=== PATIENT | female | born 1990 | race Hispanic/Latino ===

== ENCOUNTER 2017-06-20 12:19 | Emergency (ER) | payer MEDICAID ==
[~2017-06-20 12:19] MED LIST: ESOM40CA PO; NAPR-1023 PO
[2017-06-20 13:19] LABS: HEMATOCRIT 42.3 % (36-48); RED BLOOD CELL COUNT(AUTO) 4.99 MIL/uL (4.00-5.50); WHITE BLOOD COUNT (AUTO) 6.6 K/uL (4.8-10.8)
[2017-06-20 13:20] LABS: BASOPHILS % (AUTO) 1.6 % (0.0-5.0); EOSINOPHILS % (AUTO) 0.6 % (0.0-8.0); LYMPHOCYTES % (AUTO) 21.8 % (21.0-51.0); MEAN CORPUSCULAR HEMOGLOBIN 27.5 pg (27.0-33.0); MEAN CORPUSCULAR HGB CONC 32.4 g/dL (32.0-36.0); MEAN CORPUSCULAR VOLUME 84.9 fL (79-99); PLATELET COUNT (AUTO) 259 K/uL (130-400); RED CELL DISTRIBUTION WIDTH 13.4 % (11.0-15.5)
[2017-06-20 13:37] LABS: CREATININE 0.7 mg/dL (0.5-1.5); POTASSIUM 4.1 mmol/L (3.5-5.1)
[2017-06-20 13:43] LABS: ALBUMIN 3.4 g/dL (3.5-5.0); BILIRUBIN,TOTAL 0.4 mg/dL (0.2-1.0); TOTAL PROTEIN, SERUM 7.8 g/dL (6.0-8.3)
[2017-06-20] MEDS ORDERED: FAMOTIDINE/PF 20 MG/2 ML VIAL IV ONE (13:46)
[2017-06-20] MEDS ORDERED: METHYLPREDNISOLONE SOD SUCC 125MG/2ML VIAL ONE (13:46)
[2017-06-20] MEDS ORDERED: DiphenhydrAMINE HCL 50 MG/ML VIAL ONE (13:46)
[2017-06-20] MEDS ORDERED: SODIUM CHLORIDE 0.9% 1000ML 1,000 ML IV ONE (13:46)
== END 2017-06-20 15:35 | disposition home or self-care (01) ==
LOC: EDH 12:19
DX: T78.49XA Other allergy, initial encounter (principal); L50.9 Urticaria, unspecified; Z91.041 Radiographic dye allergy status; X58.XXXA Exposure to other specified factors, initial encounter
CPT/HCPCS: 36415; 80053; 85025; 96361; 96374; 96375; 99284; J1200; J2930; J3490; J7030

== ENCOUNTER 2019-03-17 01:05 | Emergency (ER) | payer MEDICAID ==
[2019-03-17 01:43] LABS: BASOPHILS % (AUTO) 0.4 % (0.0-5.0); EOSINOPHILS % (AUTO) 3.4 % (0.0-8.0); HEMATOCRIT 39.4 % (36-48); LYMPHOCYTES % (AUTO) 36.2 % (21.0-51.0); MEAN CORPUSCULAR HEMOGLOBIN 27.7 pg (27.0-33.0); MEAN CORPUSCULAR HGB CONC 32.6 g/dL (32.0-36.0); MEAN CORPUSCULAR VOLUME 85.1 fL (79-99); MONOCYTES % (AUTO) 8.7 % (3.0-13.0); NEUTROPHILS % (AUTO) 51.3 % (40.0-77.0); NUCLEATED RED BLOOD CELLS 0.1 % (0.0-0.19); PLATELET COUNT (AUTO) 240 K/uL (130-400); RED BLOOD CELL COUNT(AUTO) 4.63 MIL/uL (4.00-5.50); RED CELL DISTRIBUTION WIDTH 13.1 % (11.0-15.5); WHITE BLOOD COUNT (AUTO) 5.1 K/uL (4.8-10.8)
[2019-03-17 01:48] LABS: BILIRUBIN,URINE Negative (NEGATIVE); COLOR,URINE Yellow (YELLOW); GLUCOSE, URINE (UA) Negative (NEGATIVE); KETONES,URINE Negative (NEGATIVE); LEUKOCYTE ESTERASE ,URINE Negative (NEGATIVE); NITRATE,URINE Negative (NEGATIVE); OCCULT BLOOD,URINE Negative (NEGATIVE); PROTEIN,URINE Negative (NEGATIVE); UROBILINOGEN,URINE 0.2 mg/dL (0.2-1.0)
[2019-03-17 01:49] LABS: APPEARANCE,URINE CLEAR (CLEAR)
[2019-03-17] MEDS ORDERED: DiphenhydrAMINE HCL 50 MG/ML VIAL ONE (01:53)
[2019-03-17] MEDS ORDERED: KETOROLAC TROMETHAMINE 30MG/ML ONE (01:53)
[2019-03-17] MEDS ORDERED: PROCHLORPERAZINE EDISYLATE 10 MG/2 ML VIAL ONE (01:53)
[2019-03-17 01:55] LABS: AMPHET/METH SCREEN,URINE NEGATIVE (NEGATIVE); BARBITURATE SCREEN, URINE NEGATIVE (NEGATIVE); BENZODIAZEPINES SCREEN,URINE NEGATIVE (NEGATIVE); CANNABINOID SCREEN,URINE NEGATIVE (NEGATIVE); COCAINE SCREEN,URINE NEGATIVE (NEGATIVE); OPIATE SCREEN,URINE NEGATIVE (NEGATIVE); PHENCYCLIDINE SCREEN,URINE NEGATIVE (NEGATIVE)
[2019-03-17 01:55] LABS: CREATININE 0.8 mg/dL (0.5-1.5); POTASSIUM 3.8 mmol/L (3.5-5.1)
[2019-03-17 01:58] LABS: INR 0.94 (0.85-1.15); PARTIAL THROMBOPLASTIN TIME 27.2 SEC (26.3-35.5); PROTHROMBIN TIME 9.9 SEC (9.6-11.6)
[2019-03-17 02:00] LABS: ALBUMIN 3.5 g/dL (3.5-5.0); BILIRUBIN,TOTAL 0.1 mg/dL (0.2-1.0); TOTAL PROTEIN, SERUM 7.9 g/dL (6.0-8.3)
== END 2019-03-17 03:16 | disposition home or self-care (01) ==
LOC: EDH 01:05
DX: R51 Headache (principal); R03.0 Elevated blood-pressure reading, without diagnosis of hypertension; F41.9 Anxiety disorder, unspecified; Z90.710 Acquired absence of both cervix and uterus; Z90.49 Acquired absence of other specified parts of digestive tract; Z91.041 Radiographic dye allergy status
CPT/HCPCS: 36415; 80053; 80305; 81003; 82550; 84484; 85025; 85610; 85730; 93005; 96374; 96375; 99285; J0780; J1200; J1885

== ENCOUNTER 2021-08-02 18:33 | Emergency (ER) | payer MEDICAID ==
[~2021-08-02] VITALS: Ht 160 cm; Wt 87.1 kg
[2021-08-02 18:47] VITALS: BP 148/91
[2021-08-02] MEDS ORDERED: KETOROLAC 30MG VIAL (30MG/ML) ONE (18:51)
[2021-08-02] MEDS ORDERED: SULFAMETHOX-TMP DS 800/160 TAB ONE (18:51)
[2021-08-02] MEDS ORDERED: NAPR-1023 PO (18:58)
[2021-08-02] MEDS ORDERED: SULF1TAB42 PO (18:58)
[2021-08-02] MEDS ORDERED: SULFAMETHOX-TMP DS 800/160 TAB PO SCH (19:00)
[2021-08-02] MEDS ORDERED: KETOROLAC 30MG VIAL (30MG/ML) IM ONE (19:00)
== END 2021-08-02 19:10 | disposition home or self-care (01) ==
LOC: EDH 18:33
DX: L02.415 Cutaneous abscess of right lower limb (principal); J45.909 Unspecified asthma, uncomplicated; E11.9 Type 2 diabetes mellitus without complications; E78.00 Pure hypercholesterolemia, unspecified; I10 Essential (primary) hypertension; Z88.8 Allergy status to other drugs, medicaments and biological substances; Z79.899 Other long term (current) drug therapy; Z79.84 Long term (current) use of oral hypoglycemic drugs; Z90.49 Acquired absence of other specified parts of digestive tract; Z98.890 Other specified postprocedural states
CPT/HCPCS: 96372; 99283; J1885

== ENCOUNTER 2021-11-25 12:04 | Emergency (ER) | payer MEDICAID ==
[~2021-11-25 12:04] MED LIST changes: +SULF1TAB42 PO
[2021-11-25 12:29] LABS: BASOPHILS % (AUTO) 0.2 % (0.0-5.0); EOSINOPHILS % (AUTO) 0.8 % (0.0-8.0); HEMATOCRIT 38.5 % (36-48); LYMPHOCYTES % (AUTO) 16.1 % (21.0-51.0); MEAN CORPUSCULAR HEMOGLOBIN 27.3 pg (27.0-33.0); MEAN CORPUSCULAR HGB CONC 32.5 g/dL (32.0-36.0); MEAN CORPUSCULAR VOLUME 84.1 fL (79-99); NEUTROPHILS % (AUTO) 76.4 % (40.0-77.0); PLATELET COUNT (AUTO) 230 K/uL (130-400); RED BLOOD CELL COUNT(AUTO) 4.58 MIL/uL (4.00-5.50); RED CELL DISTRIBUTION WIDTH 12.7 % (11.0-15.5); WHITE BLOOD COUNT (AUTO) 6.2 K/uL (4.8-10.8)
[2021-11-25 12:30] LABS: APPEARANCE,URINE CLEAR (CLEAR); BILIRUBIN,URINE NEGATIVE (NEGATIVE); COLOR,URINE YELLOW (YELLOW); GLUCOSE, URINE (UA) NEGATIVE (NEGATIVE); KETONES,URINE NEGATIVE (NEGATIVE); LEUKOCYTE ESTERASE ,URINE NEGATIVE (NEGATIVE); NITRATE,URINE NEGATIVE (NEGATIVE); OCCULT BLOOD,URINE NEGATIVE (NEGATIVE); PROTEIN,URINE NEGATIVE (NEGATIVE); UROBILINOGEN,URINE 0.2 mg/dL (0.2-1.0)
[2021-11-25 12:34] LABS: HCG,QUAL RESULT NEGATIVE (NEGATIVE)
[2021-11-25 12:38] LABS: CREATININE 0.8 mg/dL (0.5-1.5); POTASSIUM 3.8 mmol/L (3.5-5.1)
[2021-11-25 12:42] LABS: ALBUMIN 3.4 g/dL (3.5-5.0); TOTAL PROTEIN, SERUM 7.7 g/dL (6.0-8.3)
[2021-11-25] MEDS ORDERED: ONDANSETRON 4MG INJ IVP ONE (13:00)
[2021-11-25] MEDS ORDERED: MORPHINE 2 MG SYG IVP ONE (13:00)
[2021-11-25] MEDS ORDERED: 0.9%NACL 1000ML 1,000 ML IV SCH (13:00)
[2021-11-25] MEDS ORDERED: ONDA4TAB10 PO (13:48)
[2021-11-25] MEDS ORDERED: KETO10 PO (13:48)
[2021-11-25] MEDS ORDERED: TAMS-1 PO (13:48)
[2021-11-25 13:54] VITALS: BP 125/76
[2021-11-25] MEDS ORDERED: TAMSULOSIN HCL 0.4 MG CAP.ER.24H PO SCH (14:50)
== END 2021-11-25 14:05 | disposition home or self-care (01) ==
LOC: EDH 12:04
DX: N20.0 Calculus of kidney (principal); E11.9 Type 2 diabetes mellitus without complications; E86.0 Dehydration; Z88.8 Allergy status to other drugs, medicaments and biological substances; Z88.0 Allergy status to penicillin; Z88.1 Allergy status to other antibiotic agents; Z79.899 Other long term (current) drug therapy
CPT/HCPCS: 99284; 74176; 96374; 96361; 96375; 80053; 83690; 85025; 86140; 81003; 81025; 36415; J7030; J2405

== ENCOUNTER 2022-02-05 23:37 | Emergency (ER) | payer MEDICAID ==
[~2022-02-05] VITALS: Ht 160 cm; Wt 87.1 kg
[~2022-02-05 23:37] MED LIST changes: +KETO10 PO; +ONDA4TAB10 PO; +TAMS-1 PO
[2022-02-06] MEDS ORDERED: INSULIN HUMULIN R 100 UNIT/ML 3ML SQ ONE (01:00)
[2022-02-06] MEDS ORDERED: 0.9%NACL 1000ML 1,000 ML IV ONE (01:00)
[2022-02-06 01:10] LABS: BASOPHILS % (AUTO) 0.1 % (0.0-5.0); HEMATOCRIT 36.5 % (36-48); MEAN CORPUSCULAR HGB CONC 33.4 g/dL (32.0-36.0); MEAN CORPUSCULAR VOLUME 83.9 fL (79-99); MONOCYTES % (AUTO) 6.2 % (3.0-13.0); NEUTROPHILS % (AUTO) 62.4 % (40.0-77.0); PLATELET COUNT (AUTO) 237 K/uL (130-400); RED BLOOD CELL COUNT(AUTO) 4.35 MIL/uL (4.00-5.50); RED CELL DISTRIBUTION WIDTH 12.6 % (11.0-15.5); WHITE BLOOD COUNT (AUTO) 7.2 K/uL (4.8-10.8)
[2022-02-06 01:24] LABS: APPEARANCE,URINE CLEAR (CLEAR); BILIRUBIN,URINE NEGATIVE (NEGATIVE); COLOR,URINE LIGHT-YELLOW (YELLOW); GLUCOSE, URINE (UA) NEGATIVE (NEGATIVE); KETONES,URINE NEGATIVE (NEGATIVE); LEUKOCYTE ESTERASE ,URINE NEGATIVE Leu/uL (NEGATIVE); NITRATE,URINE NEGATIVE (NEGATIVE); OCCULT BLOOD,URINE NEGATIVE (NEGATIVE); PH,URINE 5.5 (5.0-8.0); PROTEIN,URINE NEGATIVE (NEGATIVE); UROBILINOGEN,URINE 0.2 mg/dL (0.2-1.0)
[2022-02-06 01:28] LABS: CREATININE 0.8 mg/dL (0.5-1.5); POTASSIUM 3.8 mmol/L (3.5-5.1)
[2022-02-06 01:35] LABS: HCG,QUALITATIVE URINE NEGATIVE (NEGATIVE)
[2022-02-06] MEDS ORDERED: CYCLOBENZAPRINE HCL 10 MG TABLET PO ONE (02:00)
[2022-02-06] MEDS ORDERED: TIZA4CAP8 PO (03:24)
[2022-02-06 03:28] VITALS: BP 121/67
== END 2022-02-06 03:35 | disposition home or self-care (01) ==
LOC: EDH 23:41
DX: E11.65 Type 2 diabetes mellitus with hyperglycemia (principal); M62.838 Other muscle spasm; E66.9 Obesity, unspecified; Z88.1 Allergy status to other antibiotic agents; Z88.0 Allergy status to penicillin; Z88.8 Allergy status to other drugs, medicaments and biological substances; Z87.19 Personal history of other diseases of the digestive system; Z79.1 Long term (current) use of non-steroidal anti-inflammatories (NSAID); Z68.34 Body mass index [BMI] 34.0-34.9, adult
CPT/HCPCS: 99284; 80048; 85025; 82948 ×2; 81003; 81025; 36415; 96360; 96361; 72040; 96372; J1815; J7030

== ENCOUNTER 2022-05-21 21:15 | Emergency (ER) | payer MEDICAID ==
[~2022-05-21] VITALS: Ht 160 cm; Wt 86.2 kg
[~2022-05-21 21:15] MED LIST changes: +TIZA4CAP8 PO
[2022-05-21 22:24] LABS: BASOPHILS % (AUTO) 0.2 % (0.0-5.0); EOSINOPHILS % (AUTO) 1.5 % (0.0-8.0); HEMATOCRIT 37.7 % (36-48); LYMPHOCYTES % (AUTO) 34.4 % (21.0-51.0); MEAN CORPUSCULAR HEMOGLOBIN 27.7 pg (27.0-33.0); MEAN CORPUSCULAR HGB CONC 32.4 g/dL (32.0-36.0); MEAN CORPUSCULAR VOLUME 85.5 fL (79-99); MONOCYTES % (AUTO) 7.7 % (3.0-13.0); NEUTROPHILS % (AUTO) 55.9 % (40.0-77.0); PLATELET COUNT (AUTO) 246 K/uL (130-400); RED BLOOD CELL COUNT(AUTO) 4.41 MIL/uL (4.00-5.50); RED CELL DISTRIBUTION WIDTH 12.4 % (11.0-15.5); WHITE BLOOD COUNT (AUTO) 6.5 K/uL (4.8-10.8)
[2022-05-21 22:35] LABS: CREATININE 0.9 mg/dL (0.5-1.5); POTASSIUM 3.7 mmol/L (3.5-5.1)
[2022-05-21 22:37] LABS: HCG,QUALITATIVE URINE NEGATIVE (NEGATIVE)
[2022-05-21 22:40] LABS: ALBUMIN 3.3 g/dL (3.5-5.0); TOTAL PROTEIN, SERUM 7.6 g/dL (6.0-8.3)
[2022-05-21 22:46] LABS: APPEARANCE,URINE CLEAR (CLEAR); BILIRUBIN,URINE NEGATIVE (NEGATIVE); COLOR,URINE LIGHT-YELLOW (YELLOW); GLUCOSE, URINE (UA) >=1000 mg/dL (NEGATIVE); KETONES,URINE NEGATIVE (NEGATIVE); LEUKOCYTE ESTERASE ,URINE NEGATIVE Leu/uL (NEGATIVE); NITRATE,URINE NEGATIVE (NEGATIVE); OCCULT BLOOD,URINE NEGATIVE (NEGATIVE); PH,URINE 5.5 (5.0-8.0); PROTEIN,URINE NEGATIVE (NEGATIVE); UROBILINOGEN,URINE 0.2 mg/dL (0.2-1.0)
[2022-05-21 22:47] LABS: AMPHET/METH SCREEN,URINE NEGATIVE (NEGATIVE); BARBITURATE SCREEN, URINE NEGATIVE (NEGATIVE); BENZODIAZEPINES SCREEN,URINE NEGATIVE (NEGATIVE); CANNABINOID SCREEN,URINE NEGATIVE (NEGATIVE); COCAINE SCREEN,URINE NEGATIVE (NEGATIVE); OPIATE SCREEN,URINE NEGATIVE (NEGATIVE); PHENCYCLIDINE SCREEN,URINE NEGATIVE (NEGATIVE)
[2022-05-21 22:48] LABS: BACTERIA,URINE FEW /HPF (None Seen); MUCUS,URINE RARE LPF (None Seen); RBC,URINE 0-1 /HPF (0-1)
[2022-05-21 22:50] LABS: SQUAMOUS EPITHELIAL CELL,UR MOD /HPF (0-2)
[2022-05-21] MEDS ORDERED: INSULIN HUMULIN R 100 UNIT/ML 3ML SQ ONE (23:30)
[2022-05-21] MEDS ORDERED: KETOROLAC 30MG VIAL (30MG/ML) IVP ONE (23:30)
[2022-05-21] MEDS ORDERED: 0.9%NACL 1000ML 1,000 ML IV ONE (23:30)
[2022-05-22 01:00] VITALS: BP 143/81
== END 2022-05-22 01:36 | disposition home or self-care (01) ==
LOC: EDH 21:15
DX: E11.65 Type 2 diabetes mellitus with hyperglycemia (principal); R20.0 Anesthesia of skin; I10 Essential (primary) hypertension; Z86.73 Personal history of transient ischemic attack (TIA), and cerebral infarction without residual deficits; Z90.49 Acquired absence of other specified parts of digestive tract; Z90.710 Acquired absence of both cervix and uterus; Z79.899 Other long term (current) drug therapy; Z88.0 Allergy status to penicillin; Z88.1 Allergy status to other antibiotic agents; Z88.8 Allergy status to other drugs, medicaments and biological substances; Z79.1 Long term (current) use of non-steroidal anti-inflammatories (NSAID)
CPT/HCPCS: 99285; 96374; 70450; 96361; 84484; 80053; 80305; 85025; 82948 ×2; 81001; 81025; 36415; 96372; 93005; J1815; J7030; J1885

== ENCOUNTER 2022-08-15 20:48 | Emergency (ER) | payer MEDICAID ==
[~2022-08-15] VITALS: Ht 160 cm; Wt 86.2 kg
[2022-08-15] MEDS ORDERED: KETOROLAC 30MG VIAL (30MG/ML) IM ONE (22:30)
[2022-08-15] MEDS ORDERED: INSULIN HUMULIN R 100 UNIT/ML 3ML SQ ONE (22:30)
[2022-08-15] MEDS ORDERED: 0.9%NACL 1000ML 1,000 ML IV ONE (23:30)
[2022-08-16 00:09] LABS: APPEARANCE,URINE CLOUDY (CLEAR); BILIRUBIN,URINE NEGATIVE (NEGATIVE); COLOR,URINE YELLOW (YELLOW); GLUCOSE, URINE (UA) >=1000 mg/dL (NEGATIVE); KETONES,URINE 5 mg/dL (NEGATIVE); LEUKOCYTE ESTERASE ,URINE 25 Leu/uL (NEGATIVE); NITRATE,URINE NEGATIVE (NEGATIVE); OCCULT BLOOD,URINE NEGATIVE (NEGATIVE); PH,URINE 5.5 (5.0-8.0); PROTEIN,URINE 20 mg/dL (NEGATIVE)
[2022-08-16 00:17] LABS: CREATININE 0.8 mg/dL (0.5-1.5); POTASSIUM 3.6 mmol/L (3.5-5.1)
[2022-08-16 00:19] LABS: BACTERIA,URINE Few /HPF (None Seen)
[2022-08-16 00:23] LABS: ALBUMIN 3.2 g/dL (3.5-5.0); BASOPHILS % (AUTO) 0.3 % (0.0-5.0); EOSINOPHILS % (AUTO) 1.9 % (0.0-8.0); HEMATOCRIT 37.4 % (36-48); LYMPHOCYTES % (AUTO) 41.3 % (21.0-51.0); MEAN CORPUSCULAR HEMOGLOBIN 27.9 pg (27.0-33.0); MEAN CORPUSCULAR HGB CONC 33.2 g/dL (32.0-36.0); MONOCYTES % (AUTO) 6.3 % (3.0-13.0); PLATELET COUNT (AUTO) 234 K/uL (130-400); RED BLOOD CELL COUNT(AUTO) 4.45 MIL/uL (4.00-5.50); RED CELL DISTRIBUTION WIDTH 12.2 % (11.0-15.5); TOTAL PROTEIN, SERUM 7.3 g/dL (6.0-8.3); WHITE BLOOD COUNT (AUTO) 6.2 K/uL (4.8-10.8)
[2022-08-16 00:37] VITALS: BP 148/82
[2022-08-16] MEDS ORDERED: HYDROCODONE/ACETAMINOPHEN 5/325 MG TAB ONE (01:09)
[2022-08-16] MEDS ORDERED: ONDANSETRON 4MG INJ ONE (01:09)
[2022-08-16] MEDS ORDERED: ONDANSETRON 4MG INJ IVP ONE (01:30)
[2022-08-16] MEDS ORDERED: HYDROCODONE/ACETAMINOPHEN 5/325 MG TAB PO ONE (01:30)
[2022-08-16] MEDS ORDERED: IBUP-2070 PO (02:46)
== END 2022-08-16 02:53 | disposition home or self-care (01) ==
LOC: EDH 20:48
DX: S69.81XA Other specified injuries of right wrist, hand and finger(s), initial encounter (principal); E11.65 Type 2 diabetes mellitus with hyperglycemia; I10 Essential (primary) hypertension; E11.9 Type 2 diabetes mellitus without complications; E66.9 Obesity, unspecified; K21.9 Gastro-esophageal reflux disease without esophagitis; Z90.49 Acquired absence of other specified parts of digestive tract; Z98.890 Other specified postprocedural states; Z79.899 Other long term (current) drug therapy; Z88.0 Allergy status to penicillin; Z88.1 Allergy status to other antibiotic agents; Z88.8 Allergy status to other drugs, medicaments and biological substances; Z91.040 Latex allergy status; W18.39XA Other fall on same level, initial encounter; Y93.89 Activity, other specified; Y92.89 Other specified places as the place of occurrence of the external cause; Y99.8 Other external cause status
CPT/HCPCS: 99284; 80053; 85025; 82948 ×4; 82010; 81001; 36415; 73130; 73110; 96372 ×2; 96374; 96361; J1815 ×2; J1885; J2405

== ENCOUNTER 2022-11-05 23:21 | Emergency (ER) | payer MEDICAID ==
[~2022-11-05] VITALS: Ht 160 cm; Wt 83.5 kg
[~2022-11-05 23:21] MED LIST changes: +IBUP-2070 PO
[2022-11-05 23:58] LABS: BASOPHILS % (AUTO) 0.3 % (0.0-5.0); EOSINOPHILS % (AUTO) 1.9 % (0.0-8.0); HEMATOCRIT 40.2 % (36-48); LYMPHOCYTES % (AUTO) 36.6 % (21.0-51.0); MEAN CORPUSCULAR HEMOGLOBIN 27.1 pg (27.0-33.0); MEAN CORPUSCULAR HGB CONC 33.1 g/dL (32.0-36.0); MONOCYTES % (AUTO) 6.5 % (3.0-13.0); NEUTROPHILS % (AUTO) 54.4 % (40.0-77.0); PLATELET COUNT (AUTO) 231 K/uL (130-400); RED CELL DISTRIBUTION WIDTH 12.5 % (11.0-15.5); WHITE BLOOD COUNT (AUTO) 6.2 K/uL (4.8-10.8)
[2022-11-06] MEDS ORDERED: ONDANSETRON 4MG INJ IVP ONE ×2
[2022-11-06] MEDS ORDERED: 0.9%NACL 1000ML 1,000 ML IV ONE
[2022-11-06] MEDS ORDERED: MORPHINE 4 MG SYG IVP ONE
[2022-11-06 00:08] LABS: APPEARANCE,URINE CLEAR (CLEAR); BILIRUBIN,URINE NEGATIVE (NEGATIVE); COLOR,URINE COLORLESS (YELLOW); GLUCOSE, URINE (UA) >=1000 mg/dL (NEGATIVE); KETONES,URINE NEGATIVE (NEGATIVE); LEUKOCYTE ESTERASE ,URINE NEGATIVE Leu/uL (NEGATIVE); NITRATE,URINE NEGATIVE (NEGATIVE); OCCULT BLOOD,URINE NEGATIVE (NEGATIVE); PROTEIN,URINE NEGATIVE (NEGATIVE); UROBILINOGEN,URINE 0.2 mg/dL (0.2-1.0)
[2022-11-06 00:09] LABS: SQUAMOUS EPITHELIAL CELL,UR RARE /HPF (0-2)
[2022-11-06 00:11] LABS: CREATININE 0.8 mg/dL (0.5-1.5); POTASSIUM 3.9 mmol/L (3.5-5.1)
[2022-11-06 00:17] LABS: ALBUMIN 3.3 g/dL (3.5-5.0); TOTAL PROTEIN, SERUM 7.5 g/dL (6.0-8.3)
[2022-11-06 01:55] VITALS: BP 132/73
[2022-11-06] MEDS ORDERED: IBUP-2088 PO (02:08)
[2022-11-06] MEDS ORDERED: DOCU-116 PO (02:08)
== END 2022-11-06 02:21 | disposition home or self-care (01) ==
LOC: EDH 23:21
DX: R10.9 Unspecified abdominal pain (principal); E11.9 Type 2 diabetes mellitus without complications; I10 Essential (primary) hypertension; Z88.0 Allergy status to penicillin; Z88.1 Allergy status to other antibiotic agents; Z88.8 Allergy status to other drugs, medicaments and biological substances; Z90.49 Acquired absence of other specified parts of digestive tract
CPT/HCPCS: 99285; 96374; 96361; 96375; 80053; 83690; 85025; 83605; 81001; 36415; 74176; J7030; J2405; J2270

== ENCOUNTER 2023-02-26 22:09 | Emergency (ER) | payer MEDICAID ==
[~2023-02-26] VITALS: Ht 160 cm; Wt 76.2 kg
[~2023-02-26 22:09] MED LIST changes: +DOCU-116 PO; +IBUP-2088 PO
[2023-02-26] MEDS ORDERED: SOLU-MEDROL 125MG VIAL IVP ONE (22:30)
[2023-02-26] MEDS ORDERED: FAMOTIDINE 20MG VIAL IV ONE (22:30)
[2023-02-26 22:32] LABS: APPEARANCE,URINE CLEAR (CLEAR); BILIRUBIN,URINE NEGATIVE (NEGATIVE); COLOR,URINE LIGHT-YELLOW (YELLOW); GLUCOSE, URINE (UA) NEGATIVE (NEGATIVE); KETONES,URINE NEGATIVE (NEGATIVE); LEUKOCYTE ESTERASE ,URINE NEGATIVE Leu/uL (NEGATIVE); NITRATE,URINE NEGATIVE (NEGATIVE); OCCULT BLOOD,URINE NEGATIVE (NEGATIVE); PH,URINE 5.5 (5.0-8.0); PROTEIN,URINE 10 mg/dL (NEGATIVE); UROBILINOGEN,URINE 0.2 mg/dL (0.2-1.0)
[2023-02-26 22:36] LABS: ADD UA MICROSCOPIC NO; HCG,QUALITATIVE URINE NEGATIVE (NEGATIVE)
[2023-02-26 22:40] LABS: AMPHET/METH SCREEN,URINE NEGATIVE (NEGATIVE); BARBITURATE SCREEN, URINE NEGATIVE (NEGATIVE); BENZODIAZEPINES SCREEN,URINE NEGATIVE (NEGATIVE); CANNABINOID SCREEN,URINE POSITIVE (NEGATIVE); COCAINE SCREEN,URINE NEGATIVE (NEGATIVE); OPIATE SCREEN,URINE NEGATIVE (NEGATIVE); PHENCYCLIDINE SCREEN,URINE NEGATIVE (NEGATIVE)
[2023-02-26 22:48] LABS: BASOPHILS # (AUTO) 0.01 K/uL (0.00-0.20); BASOPHILS % (AUTO) 0.2 % (0.0-5.0); EOSINOPHILS # (AUTO) 0.04 K/uL (0.00-0.70); EOSINOPHILS % (AUTO) 0.7 % (0.0-8.0); HEMATOCRIT 36.1 % (36-48); IMMATURE GRANULOCYTE ABSOLUTE 0.02 K/uL (0-1); LYMPHOCYTES % (AUTO) 33.5 % (21.0-51.0); MEAN CORPUSCULAR HEMOGLOBIN 27.7 pg (27.0-33.0); MEAN CORPUSCULAR HGB CONC 32.4 g/dL (32.0-36.0); MEAN CORPUSCULAR VOLUME 85.3 fL (79-99); MONOCYTES # (AUTO) 0.4 K/uL (0.1-1.0); NEUTROPHILS # (AUTO) 3.5 K/uL (1.8-7.7); NEUTROPHILS % (AUTO) 58.3 % (40.0-77.0); PLATELET COUNT (AUTO) 267 K/uL (130-400); RED BLOOD CELL COUNT(AUTO) 4.23 MIL/uL (4.00-5.50); RED CELL DISTRIBUTION WIDTH 12.7 % (11.0-15.5)
[2023-02-26 22:54] LABS: CREATININE 0.7 mg/dL (0.5-1.5); POTASSIUM 4.7 mmol/L (3.5-5.1)
[2023-02-26 23:00] LABS: ALBUMIN 3.3 g/dL (3.5-5.0); BILIRUBIN,TOTAL 0.4 mg/dL (0.2-1.0); TOTAL PROTEIN, SERUM 8.3 g/dL (6.0-8.3)
[2023-02-26] MEDS ORDERED: METH4TAB3 PO (23:40)
[2023-02-26] MEDS ORDERED: FAMO-136 PO (23:41)
[2023-02-27 00:02] VITALS: BP 123/74; PULSE 80; RESP 16; O2SAT 98
== END 2023-02-27 00:03 | disposition home or self-care (01) ==
LOC: EDH 22:09
DX: S29.011A Strain of muscle and tendon of front wall of thorax, initial encounter (principal); E11.9 Type 2 diabetes mellitus without complications; J45.909 Unspecified asthma, uncomplicated; Z88.0 Allergy status to penicillin; Z88.1 Allergy status to other antibiotic agents; Z88.8 Allergy status to other drugs, medicaments and biological substances; Z90.710 Acquired absence of both cervix and uterus; Z90.49 Acquired absence of other specified parts of digestive tract; X58.XXXA Exposure to other specified factors, initial encounter; Y93.89 Activity, other specified; Y92.89 Other specified places as the place of occurrence of the external cause; Y99.8 Other external cause status
CPT/HCPCS: 99285; 96374; 71045; 96375; 84484; 80053; 80305; 85025; 81025; 36415; 93005; 81003; J2930; S0028; J3490

== ENCOUNTER 2023-03-20 06:26 | Emergency (ER) | payer MEDICAID ==
[~2023-03-20] VITALS: Ht 160 cm; Wt 74.8 kg
[~2023-03-20 06:26] MED LIST changes: +FAMO-136 PO; +METH4TAB3 PO
[2023-03-20 06:51] LABS: BASOPHILS # (AUTO) 0.01 K/uL (0.00-0.20); BASOPHILS % (AUTO) 0.2 % (0.0-5.0); EOSINOPHILS # (AUTO) 0.12 K/uL (0.00-0.70); EOSINOPHILS % (AUTO) 2.1 % (0.0-8.0); HEMATOCRIT 37.4 % (36-48); IMMATURE GRANULOCYTE ABSOLUTE 0.03 K/uL (0-1); LYMPHOCYTES # (AUTO) 1.2 K/uL (1.0-4.8); LYMPHOCYTES % (AUTO) 20.3 % (21.0-51.0); MEAN CORPUSCULAR HEMOGLOBIN 27.8 pg (27.0-33.0); MEAN CORPUSCULAR HGB CONC 32.4 g/dL (32.0-36.0); MEAN CORPUSCULAR VOLUME 85.8 fL (79-99); MONOCYTES # (AUTO) 0.4 K/uL (0.1-1.0); MONOCYTES % (AUTO) 6.4 % (3.0-13.0); NEUTROPHILS # (AUTO) 4.1 K/uL (1.8-7.7); NEUTROPHILS % (AUTO) 70.5 % (40.0-77.0); PLATELET COUNT (AUTO) 255 K/uL (130-400); RED BLOOD CELL COUNT(AUTO) 4.36 MIL/uL (4.00-5.50); RED CELL DISTRIBUTION WIDTH 12.9 % (11.0-15.5); WHITE BLOOD COUNT (AUTO) 5.8 K/uL (4.8-10.8)
[2023-03-20] MEDS ORDERED: LACTATED RINGERS 1000ML 1,000 ML IV ONE (07:00)
[2023-03-20] MEDS ORDERED: FAMOTIDINE 20MG VIAL IV ONE ×2 (07:43→08:00)
[2023-03-20] MEDS ORDERED: METOCLOPRAMIDE 10 MG/2 ML VIAL ONE (07:43)
[2023-03-20] MEDS ORDERED: ONDANSETRON 4MG INJ ONE (07:43)
[2023-03-20] MEDS ORDERED: ONDANSETRON 4MG INJ IVP ONE (08:00)
[2023-03-20] MEDS ORDERED: METOCLOPRAMIDE 10 MG/2 ML VIAL IVP ONE (08:00)
[2023-03-20 08:16] LABS: ALBUMIN 3.2 g/dL (3.5-5.0); BILIRUBIN,TOTAL 0.2 mg/dL (0.2-1.0); CREATININE 0.8 mg/dL (0.5-1.5); POTASSIUM 4.1 mmol/L (3.5-5.1); TOTAL PROTEIN, SERUM 7.6 g/dL (6.0-8.3)
[2023-03-20] MEDS ORDERED: KETOROLAC 15MG/ML VIAL (15MG/ML) ONE (08:39)
[2023-03-20] MEDS ORDERED: KETOROLAC 30MG VIAL (30MG/ML) IM ONE (09:00)
[2023-03-20] MEDS ORDERED: KETOROLAC 15MG/ML VIAL (15MG/ML) IV ONE (09:00)
[2023-03-20 09:53] LABS: ADD UA MICROSCOPIC NO; APPEARANCE,URINE CLEAR (CLEAR); BILIRUBIN,URINE NEGATIVE (NEGATIVE); COLOR,URINE COLORLESS (YELLOW); GLUCOSE, URINE (UA) NEGATIVE (NEGATIVE); KETONES,URINE NEGATIVE (NEGATIVE); LEUKOCYTE ESTERASE ,URINE NEGATIVE Leu/uL (NEGATIVE); NITRATE,URINE NEGATIVE (NEGATIVE); OCCULT BLOOD,URINE NEGATIVE (NEGATIVE); PH,URINE 5.5 (5.0-8.0); PROTEIN,URINE NEGATIVE (NEGATIVE); UROBILINOGEN,URINE 0.2 mg/dL (0.2-1.0)
[2023-03-20 10:05] LABS: HCG,QUALITATIVE URINE NEGATIVE (NEGATIVE)
[2023-03-20] MEDS ORDERED: ONDA4TAB10 PO (10:31)
[2023-03-20] MEDS ORDERED: METO10TA41 PO (10:31)
[2023-03-20] MEDS ORDERED: ALBUHFA IH (10:31)
[2023-03-20] MEDS ORDERED: FAMO-136 PO (10:31)
[2023-03-20 10:39] VITALS: BP 109/71; PULSE 77; RESP 17; O2SAT 100
== END 2023-03-20 10:41 | disposition home or self-care (01) ==
LOC: EDH 06:26
DX: R10.10 Upper abdominal pain, unspecified (principal); R11.2 Nausea with vomiting, unspecified; E86.0 Dehydration; E11.43 Type 2 diabetes mellitus with diabetic autonomic (poly)neuropathy; J45.909 Unspecified asthma, uncomplicated; K31.84 Gastroparesis; Z88.0 Allergy status to penicillin; Z88.1 Allergy status to other antibiotic agents; Z88.8 Allergy status to other drugs, medicaments and biological substances; Z90.49 Acquired absence of other specified parts of digestive tract; Z98.51 Tubal ligation status
CPT/HCPCS: 99284; 96374; 96361; 96375; 80053; 83690; 85025; 81003; 81025; 36415; 96372; J2405; J1885 ×2; J2765; S0028; J3490

== ENCOUNTER 2023-04-01 10:47 | Emergency (ER) | payer MEDICAID ==
[~2023-04-01] VITALS: Ht 160 cm; Wt 75.7 kg
[~2023-04-01 10:47] MED LIST changes: +ALBUHFA IH; +METO10TA41 PO
[2023-04-01 13:08] LABS: BASOPHILS # (AUTO) 0.02 K/uL (0.00-0.20); BASOPHILS % (AUTO) 0.4 % (0.0-5.0); EOSINOPHILS # (AUTO) 0.07 K/uL (0.00-0.70); EOSINOPHILS % (AUTO) 1.3 % (0.0-8.0); HEMATOCRIT 35.9 % (36-48); IMMATURE GRANULOCYTE ABSOLUTE 0.02 K/uL (0-1); LYMPHOCYTES # (AUTO) 1.8 K/uL (1.0-4.8); LYMPHOCYTES % (AUTO) 32.4 % (21.0-51.0); MEAN CORPUSCULAR HGB CONC 32.6 g/dL (32.0-36.0); MEAN CORPUSCULAR VOLUME 85.9 fL (79-99); MONOCYTES # (AUTO) 0.5 K/uL (0.1-1.0); MONOCYTES % (AUTO) 8.3 % (3.0-13.0); NEUTROPHILS # (AUTO) 3.2 K/uL (1.8-7.7); NEUTROPHILS % (AUTO) 57.2 % (40.0-77.0); PLATELET COUNT (AUTO) 276 K/uL (130-400); RED BLOOD CELL COUNT(AUTO) 4.18 MIL/uL (4.00-5.50); RED CELL DISTRIBUTION WIDTH 13.1 % (11.0-15.5); WHITE BLOOD COUNT (AUTO) 5.6 K/uL (4.8-10.8)
[2023-04-01 13:09] LABS: CREATININE 0.6 mg/dL (0.5-1.5); POTASSIUM 3.6 mmol/L (3.5-5.1)
[2023-04-01 13:14] LABS: ALBUMIN 3.1 g/dL (3.5-5.0); BILIRUBIN,TOTAL 0.2 mg/dL (0.2-1.0); TOTAL PROTEIN, SERUM 7.3 g/dL (6.0-8.3)
[2023-04-01 14:43] VITALS: BP 132/78; PULSE 97; RESP 16; O2SAT 100
[2023-04-01] MEDS ORDERED: SUMA1TAB7 PO (14:54)
[2023-04-01] MEDS ORDERED: PROCHLORPERAZINE 10MG/2ML INJ IV ONE (15:00)
[2023-04-01] MEDS ORDERED: DiphenhydrAMINE HCL 50 MG/ML VIAL IV ONE (15:00)
[2023-04-01 15:06] LABS: AMPHET/METH SCREEN,URINE NEGATIVE (NEGATIVE); BARBITURATE SCREEN, URINE NEGATIVE (NEGATIVE); BENZODIAZEPINES SCREEN,URINE NEGATIVE (NEGATIVE); CANNABINOID SCREEN,URINE NEGATIVE (NEGATIVE); COCAINE SCREEN,URINE NEGATIVE (NEGATIVE); OPIATE SCREEN,URINE NEGATIVE (NEGATIVE); PHENCYCLIDINE SCREEN,URINE NEGATIVE (NEGATIVE)
== END 2023-04-01 15:35 | disposition home or self-care (01) ==
LOC: EDH 10:47
DX: G43.909 Migraine, unspecified, not intractable, without status migrainosus (principal); E11.9 Type 2 diabetes mellitus without complications; K21.9 Gastro-esophageal reflux disease without esophagitis; K31.84 Gastroparesis; Z86.73 Personal history of transient ischemic attack (TIA), and cerebral infarction without residual deficits; Z88.0 Allergy status to penicillin; Z88.1 Allergy status to other antibiotic agents; Z88.8 Allergy status to other drugs, medicaments and biological substances; Z90.49 Acquired absence of other specified parts of digestive tract; Z91.041 Radiographic dye allergy status
CPT/HCPCS: 99285; 96374; 70450; 96375; 80053; 80305; 85025; 36415; J1200; J0780

== ENCOUNTER 2023-11-15 14:14 | Emergency (ER) | payer MEDICAID ==
[~2023-11-15] VITALS: Ht 160 cm; Wt 85.3 kg
[~2023-11-15 14:14] MED LIST changes: +ONDA-243 PO; -ONDA4TAB10 PO; +SUMA1TAB7 PO
[2023-11-15] MEDS: IBUPROFEN 800 MG TAB PO ONE (15:20)
[2023-11-15 15:21] VITALS: BP 140/76; PULSE 87; RESP 17; O2SAT 96
[2023-11-15] MEDS ORDERED: BUTA-271 PO (15:21)
== END 2023-11-15 15:39 | disposition home or self-care (01) ==
LOC: EDH 14:14 → EEVIPCON 14:14 → EDH 15:39
DX: G44.209 Tension-type headache, unspecified, not intractable (principal); E11.9 Type 2 diabetes mellitus without complications; K21.9 Gastro-esophageal reflux disease without esophagitis; Z79.899 Other long term (current) drug therapy; Z98.890 Other specified postprocedural states; Z90.49 Acquired absence of other specified parts of digestive tract; Z90.710 Acquired absence of both cervix and uterus; Z88.0 Allergy status to penicillin; Z88.1 Allergy status to other antibiotic agents; Z88.8 Allergy status to other drugs, medicaments and biological substances
CPT/HCPCS: 70450; 93005

== ENCOUNTER 2024-01-17 21:00 | Emergency (ER) | payer MEDICAID ==
[~2024-01-17] VITALS: Ht 160 cm; Wt 86.2 kg
[~2024-01-17 21:00] MED LIST changes: +BUTA-271 PO
[2024-01-17 21:03] VITALS: BP 166/76; PULSE 108; RESP 20; TEMP 99.2
[2024-01-17] MEDS: LIDOCAINE HCL 1% 20 ML VIAL INJ SCH (21:21)
[2024-01-17] MEDS: CLINDAMYCIN 150 MG CAP PO ONE (21:21)
[2024-01-17] MEDS: HYDROcodone/APAP 5/325 1 TAB TABLET PO ONE (21:21)
[2024-01-17] MEDS: NEOMY SULF/BACITRA/POLYMYXIN B 1 EACH PACKET TP ONE (21:21)
[2024-01-17] MEDS: teTANUS/diphthERIA TOXOID [ADULT] 0.5 ML VIAL IM ONE (21:22)
[2024-01-17] MEDS ORDERED: ACET-2079 PO (22:00)
[2024-01-17] MEDS ORDERED: CEPH500B PO (22:00)
[2024-01-17] MEDS: cePHALexin 500 MG CAPSULE PO ONE (22:03)
== END 2024-01-17 22:15 | disposition home or self-care (01) ==
LOC: EDH 21:00
DX: S81.812A Laceration without foreign body, left lower leg, initial encounter (principal); E11.9 Type 2 diabetes mellitus without complications; Z79.899 Other long term (current) drug therapy; Z90.49 Acquired absence of other specified parts of digestive tract; Z90.710 Acquired absence of both cervix and uterus; Z98.890 Other specified postprocedural states; Z88.0 Allergy status to penicillin; Z88.5 Allergy status to narcotic agent; Z88.8 Allergy status to other drugs, medicaments and biological substances; W25.XXXA Contact with sharp glass, initial encounter; Y93.89 Activity, other specified; Y92.89 Other specified places as the place of occurrence of the external cause; Y99.8 Other external cause status
CPT/HCPCS: 12002; 90471; 90714

== ENCOUNTER 2024-01-25 22:10 | Emergency (ER) | payer MEDICAID ==
[~2024-01-25] VITALS: Ht 160 cm; Wt 83.9 kg
[~2024-01-25 22:10] MED LIST changes: +ACET-2079 PO; +CEPH500B PO
[2024-01-25 23:30] VITALS: BP 124/62; PULSE 74; RESP 20; TEMP 98.1; O2SAT 98
== END 2024-01-25 23:38 | disposition home or self-care (01) ==
LOC: EDH 22:10
DX: S81.812A Laceration without foreign body, left lower leg, initial encounter (principal); E11.9 Type 2 diabetes mellitus without complications; E66.9 Obesity, unspecified; K21.9 Gastro-esophageal reflux disease without esophagitis; K31.84 Gastroparesis; Z79.899 Other long term (current) drug therapy; Z88.0 Allergy status to penicillin; Z88.1 Allergy status to other antibiotic agents; Z88.8 Allergy status to other drugs, medicaments and biological substances; Z90.49 Acquired absence of other specified parts of digestive tract; Z90.710 Acquired absence of both cervix and uterus; Z91.041 Radiographic dye allergy status; Z98.890 Other specified postprocedural states; X58.XXXA Exposure to other specified factors, initial encounter; Y93.89 Activity, other specified; Y92.89 Other specified places as the place of occurrence of the external cause; Y99.8 Other external cause status
CPT/HCPCS: 12001; 99282

== ENCOUNTER 2024-02-08 08:34 | Emergency (ER) | payer MEDICAID ==
[~2024-02-08] VITALS: Ht 160 cm; Wt 86.2 kg
[2024-02-08 09:41] LABS: RAPID GROUP A STREP negative (NEGATIVE)
[2024-02-08 09:48] LABS: APPEARANCE,URINE CLEAR (CLEAR); BILIRUBIN,URINE NEGATIVE (NEGATIVE); COLOR,URINE YELLOW (YELLOW); GLUCOSE, URINE (UA) NEGATIVE (NEGATIVE); KETONES,URINE NEGATIVE (NEGATIVE); LEUKOCYTE ESTERASE ,URINE NEGATIVE Leu/uL (NEGATIVE); NITRATE,URINE NEGATIVE (NEGATIVE); OCCULT BLOOD,URINE NEGATIVE (NEGATIVE); PROTEIN,URINE NEGATIVE (NEGATIVE); UROBILINOGEN,URINE 0.2 mg/dL (0.2-1.0)
[2024-02-08 09:50] LABS: ADD UA MICROSCOPIC NO
[2024-02-08 09:51] LABS: COVID19 (SARS ANTIGEN RAPID) PRESUMPTIVE NEGATIVE (NEGATIVE); INFLUENZA TYPE A Negative For Type A (NEGATIVE); INFLUENZA TYPE B Negative For Type B (NEGATIVE)
[2024-02-08 10:04] LABS: BASOPHILS # (AUTO) 0.02 K/uL (0.00-0.20); BASOPHILS % (AUTO) 0.4 % (0.0-5.0); EOSINOPHILS # (AUTO) 0.04 K/uL (0.00-0.70); EOSINOPHILS % (AUTO) 0.8 % (0.0-8.0); HEMATOCRIT 40.7 % (36-48); IMMATURE GRANULOCYTE ABSOLUTE 0.02 K/uL (0-1); LYMPHOCYTES # (AUTO) 1.1 K/uL (1.0-4.8); LYMPHOCYTES % (AUTO) 21.8 % (21.0-51.0); MEAN CORPUSCULAR HEMOGLOBIN 27.7 pg (27.0-33.0); MEAN CORPUSCULAR HGB CONC 31.9 g/dL (32.0-36.0); MEAN CORPUSCULAR VOLUME 86.8 fL (79-99); MONOCYTES # (AUTO) 0.4 K/uL (0.1-1.0); NEUTROPHILS # (AUTO) 3.5 K/uL (1.8-7.7); NEUTROPHILS % (AUTO) 69.6 % (40.0-77.0); PLATELET COUNT (AUTO) 242 K/uL (130-400); RED BLOOD CELL COUNT(AUTO) 4.69 MIL/uL (4.00-5.50); RED CELL DISTRIBUTION WIDTH 12.2 % (11.0-15.5)
[2024-02-08 10:11] LABS: CREATININE 0.8 mg/dL (0.5-1.0)
[2024-02-08] MEDS: 0.9%NACL 1000ML 1,000 ML IV ONE (11:12)
[2024-02-08] MEDS: ketOROlac 30MG VIAL (30MG/ML) IVP ONE (11:12)
[2024-02-08] MEDS ORDERED: DOCU-116 PO (13:01)
[2024-02-08] MEDS ORDERED: KETO10TA2 PO (13:09)
[2024-02-08 13:21] VITALS: BP 122/80; PULSE 97; RESP 20; TEMP 98.1; O2SAT 99
== END 2024-02-08 13:23 | disposition home or self-care (01) ==
LOC: EDH 08:34
DX: B34.9 Viral infection, unspecified (principal); K59.00 Constipation, unspecified; E11.43 Type 2 diabetes mellitus with diabetic autonomic (poly)neuropathy; K31.84 Gastroparesis; Z20.822 Contact with and (suspected) exposure to COVID-19; Z79.1 Long term (current) use of non-steroidal anti-inflammatories (NSAID); Z79.899 Other long term (current) drug therapy; Z87.442 Personal history of urinary calculi; Z88.0 Allergy status to penicillin; Z88.1 Allergy status to other antibiotic agents; Z88.8 Allergy status to other drugs, medicaments and biological substances; Z91.041 Radiographic dye allergy status; Z98.51 Tubal ligation status
CPT/HCPCS: 99285; 74176; 96374; 96361; 87426; 80048; 85025; 87880; 87804 ×2; 81003; 81025; 36415; J7030; J1885

== ENCOUNTER 2024-06-11 09:04 | Emergency (ER) | payer MEDICAID ==
[~2024-06-11] VITALS: Ht 160 cm; Wt 85.7 kg
[~2024-06-11 09:04] MED LIST changes: +KETO10TA2 PO
--- NOTE | 2024-06-11 09:33 | EKG ---
[facility] Test Date: 2024-06-11 Test Time: 09:29:43 Pat Name: HERMELINDA ANTHONY Department: ED Room: Gender: F [employer] Vendor: [id number] : 1990 Requested By: YOU SARMIENTO Order Number: [id number] Reading MD: Thor Pineda Measurements Intervals [place] Rate: 76 P: 56 LA: 135 QRS: 28 QRSD: 77 T: 35 QT: 374 QTc: 420 Interpretive Statements Sinus rhythm Compared to ECG 11/15/2023 14:50:23 No significant changes Electronically Signed On 06-13-2024 19:57:58 [employer] by Thor Pineda Please click the below link to view image of tracing.
[2024-06-11 09:57] LABS: BASOPHILS # (AUTO) 0.01 K/uL (0.00-0.20); BASOPHILS % (AUTO) 0.3 % (0.0-5.0); EOSINOPHILS # (AUTO) 0.03 K/uL (0.00-0.70); EOSINOPHILS % (AUTO) 0.8 % (0.0-8.0); HEMATOCRIT 36.2 % (36-48); IMMATURE GRANULOCYTE ABSOLUTE 0.01 K/uL (0-1); LYMPHOCYTES # (AUTO) 1.5 K/uL (1.0-4.8); LYMPHOCYTES % (AUTO) 37.6 % (21.0-51.0); MEAN CORPUSCULAR HEMOGLOBIN 27.5 pg (27.0-33.0); MEAN CORPUSCULAR HGB CONC 32.6 g/dL (32.0-36.0); MEAN CORPUSCULAR VOLUME 84.4 fL (79-99); MONOCYTES # (AUTO) 0.3 K/uL (0.1-1.0); MONOCYTES % (AUTO) 7.6 % (3.0-13.0); NEUTROPHILS # (AUTO) 2.1 K/uL (1.8-7.7); NEUTROPHILS % (AUTO) 53.4 % (40.0-77.0); PLATELET COUNT (AUTO) 258 K/uL (130-400); RED BLOOD CELL COUNT(AUTO) 4.29 MIL/uL (4.00-5.50); RED CELL DISTRIBUTION WIDTH 12.4 % (11.0-15.5)
--- NOTE | 2024-06-11 10:06 | ERN ---
ED Note History of Present Illness Stated Complaint: SYNCOPE, CHEST PAIN ONSET YESTERDAY Chief Complaint: Chest Pain Time Seen by MD: 09:14 Dictation: 34-year-old female presents to the ED for evaluation of syncope episode onset 1 hour ago. Patient reports chest pain onset last night and numbness to upper and lower extremities. Allergies: Coded Allergies: Iodine and Iodide Containing Produc (Unverified Allergy, Unknown, 03/17/19) No Known Drug Allergies (Verified Allergy, Unknown, 03/17/19) Penicillins (Unverified Allergy, Unknown, 08/02/21) azithromycin (Unverified Allergy, Unknown, 08/02/21) metformin (Unverified Allergy, Unknown, 08/02/21) Home Meds Active Scripts Ketorolac Tromethamine (Ketorolac Tromethamine) 10 Mg Tablet, 10 MG PO BID for 5 Days, #10 TAB Prov:RAMONA CEVALLOS MD 02/08/24 Docusate Sodium (Colace) 100 Mg Capsule, 100 MG PO BID for constipation for 5 Days, #10 CAP 0 Refills Prov:RAMONA CEVALLOS MD 02/08/24 Acetaminophen with Codeine (Acetaminophen-Cod #3 Tablet) 300 Mg-30 Mg Tablet, 1 TAB PO Q4H PRN for MODERATE TO SEVERE PAIN, #10 TAB 0 Refills Prov:ERASMO ANDRE NP 01/17/24 Cephalexin Monohydrate (Keflex) 500 Mg Cap, 500 MG PO QID for 7 Days, #28 CAP Prov:ERASMO ANDRE NP 01/17/24 Butalb/Acetaminophen/Caffeine (Esgic 50-325-40 mg Tablet) 50 Mg-325 Mg-40 Mg Tablet, 2 EACH PO AD for H/A, #30 TAB TWO TABLETS BY MOUTH EVERY4 HOURS P.R.N. HEADACHE/MAXIMUM SIX TABLETS IN 24 HOURS. Prov:ERASMO ANDRE NP 11/15/23 Sumatriptan Succ/Naproxen Sod (Sumatriptan-Naproxen 85-500 mg) 85 Mg-500 Mg Tablet, 1 EACH PO DAILY PRN for HEADACHE for 7 Days, #7 TAB Prov:SHIRA PEREZ MD 04/01/23 Ondansetron (Ondansetron Odt) 4 Mg Tab.rapdis, 4 MG PO TID PRN for NAUSEA, #30 TAB 0 Refills Prov:ABDULAZIZ SUTHERLAND MD 03/20/23 Famotidine (Pepcid) 20 Mg Tablet, 20 MG PO DAILY, #30 TAB 0 Refills Prov:ABDULAZIZ SUTHERLAND MD 03/20/23 Metoclopramide HCl (Reglan 10 mg Tab) 10 Mg Tablet, 10 MG PO QIDP PRN for ABD P, #30 TAB 1 Refill Prov:ABDULAZIZ SUTHERLAND MD 03/20/23 Albuterol Sulfate (Ventolin Hfa/Proventil Hfa/Proair Hfa) 90 Mcg Puff, 90 MCG IH Q4PRN PRN for WHEEZING, #1 INHALER 0 Refills Prov:ABDULAZIZ SUTHERLAND MD 03/20/23 Famotidine (Pepcid) 20 Mg Tablet, 20 MG PO BID for 30 Days, #60 TAB Prov:ASCENCION DOAN MD 02/26/23 Methylprednisolone (Medrol) 4 Mg Tab.ds.pk, 4 MG PO AD for 6 Days, #1 PACK Prov:ASCENCION DOAN MD 02/26/23 Ibuprofen (Motrin/Advil) 600 Mg Tab, 600 MG PO TIDP PRN for PAIN, #30 TAB Prov:DARIO PIRES MD 11/06/22 Docusate Sodium (Colace) 100 Mg Capsule, 100 MG PO BID PRN for CONSTIPATION, #20 CAP Prov:DARIO PIRES MD 11/06/22 Ibuprofen (Ibuprofen) 600 Mg Tablet, 600 MG PO Q8H PRN for PAIN for 10 Days, #30 TAB Prov:DENEEN SHEEHAN MD 08/16/22 Tizanidine HCl (Tizanidine HCl) 4 Mg Capsule, 4 MG PO TIDP PRN for MUSCLE SPASMS, #20 CAP 0 Refills Prov:DAILY COLLINS MD 02/06/22 Ondansetron (Ondansetron Odt) 4 Mg Tab.rapdis, 4 MG PO TIDP, #21 TAB Prov:JAYSON COLIN 11/25/21 Ketorolac Tromethamine (Toradol) 10 Mg Tab, 10 MG PO TIDPC for 4 Days, #12 TAB Prov:JAYSON COLIN 11/25/21 Tamsulosin HCl (Flomax) 0.4 Mg Cap.er.24h, 0.4 MG PO DAILY, #30 CAPSULE. Prov:JAYSON COLIN 11/25/21 Naproxen (Naproxen) 500 Mg Tablet, 500 MG PO BID, #15 TAB Prov:JOHN BHAKTA CROP [employer] TE[employer]NT FARMER 08/02/21 Sulfamethoxazole/Trimethoprim (Bactrim Ds Tablet) 1 Each Tablet, 1 TAB PO BID for 7 Days, #14 TAB 0 Refills Prov:JOHN BHAKTA CROP [employer] TE[employer] FARMER 08/02/21 Reported Medications Naproxen (Naproxen) 500 Mg Tablet, PO Q4HPRN, TAB 03/18/17 Esomeprazole Magnesium (Nexium) 40 Mg Capsule.dr, 40 MG PO DAILY, CAP 03/18/17 Past Medical History Past Medical History: Diabetes-Type II, Kidney Infection, Kidney Stone Additional Past Medical Hx: GASTROPARESIS, ANAPHYLAXIS Surgical History: Hysterectomy, None, BTL Surgical History Other: TUBAL LIGATION Family History: Negative Social History: Negative, Other History: Not Applicable Review of System Dictation Constitutional: Negative for fever,chills, and weight loss Eyes: Negative for injury, pain,redness, and discharge ENT: Negative for injury,pain or swelling Cardiovascular: Positive for chest pain negative for palpitations, and edema Respiratory: Negative for shortness of breath, cough, and wheezing, Abdomen/GI: Negative for abdominal pain, nausea, vomiting, diarrhea, and constipation Back: Negative for injury and pain : Negative for injury, bleeding and discharge MS/Extremity: Negative for injury and deformity Skin: Negative for rash, and discoloration Neuro: Positive for syncope and numbness to upper and lower extremities Negative for headache, weakness, tingling, and seizure Psych: Negative for suicide ideation, homicidal ideation, and hallucinations Initial Vital Sign VS Vital Signs Date Time Temp Pulse Resp B/P (MAP) Pulse Ox O2 Delivery O2 Flow Rate FiO2 06/11/24 09:07 98.6 97 18 149/123 100 Room Air 0 06/11/24 09:24 21 Physical Exam Dictation General: awake, alert, NAD Head/Face: Normocephalic, atraumatic Eyes: PERRL, EOMI, vision at baseline ENT: oral cavity clear, TMs clear, no signs of infection Neck: Trachea midline, supple, no nuchal rigidity Cardiovascular: RRR, normal S1/S2, No MRGs, no JVD Respiratory: CTAB, no respiratory distress, No rales or wheezes Abdomen: Soft, non-tender, non-distended, normal bowel sounds, no guarding or rebound. Skin: Warm, dry, normal turgor, no rash MS/Extremity: Pulses equal, no cyanosis, neurovascular intact, FROM Neuro: COAx4, GCS 15, strength 5/5, CN 2-12 intact, normal cerebellar exam, normal gait, Psych: Normal behavior, mood, and affect normal Results (Laboratory/Radiology) Laboratory/Radiology Laboratory Tests Test 06/11/24 09:37 06/11/24 10:49 06/11/24 11:25 White Blood Count 4.0 K/uL (4.8-10.8) L Red Blood Count 4.29 MIL/uL (4.00-5.50) Hemoglobin 11.8 g/dL (12.0-16.0) L Hematocrit 36.2 % (36-48) Mean Corpuscular Volume 84.4 fL (79-99) Mean Corpuscular Hemoglobin 27.5 pg (27.0-33.0) Mean Corpuscular Hemoglobin Concent 32.6 g/dL (32.0-36.0) Red Cell Distribution Width 12.4 % (11.0-15.5) Platelet Count 258 K/uL (130-400) Mean Platelet Volume 10.2 fL (7.5-10.5) Immature Granulocyte % (Auto) 0.3 % (0-1) Neutrophils (%) (Auto) 53.4 % (40.0-77.0) Lymphocytes (%) (Auto) 37.6 % (21.0-51.0) Monocytes (%) (Auto) 7.6 % (3.0-13.0) Eosinophils (%) (Auto) 0.8 % (0.0-8.0) Basophils (%) (Auto) 0.3 % (0.0-5.0) Neutrophils # (Auto) 2.1 K/uL (1.8-7.7) Lymphocytes # (Auto) 1.5 K/uL (1.0-4.8) Monocytes # (Auto) 0.3 K/uL (0.1-1.0) Eosinophils # (Auto) 0.03 K/uL (0.00-0.70) Basophils # (Auto) 0.01 K/uL (0.00-0.20) Absolute Immature Granulocyte (auto 0.01 K/uL (0-1) Nucleated Red Blood Cells 0.0 % (0.0-0.19) Sodium Level 138 mmol/L (136-145) Potassium Level 3.9 mmol/L (3.5-5.1) Chloride Level 102 mmol/L (101-111) Carbon Dioxide Level 29 mmol/L (21-32) Blood Urea Nitrogen 7 mg/dL (7-18) Creatinine 0.7 mg/dL (0.5-1.0) Glomerular Filtration Rate Calc 116 mL/min (>90) Random Glucose 267 mg/dL (70-105) H Total Calcium 9.0 mg/dL (8.5-10.1) Total Creatine Kinase 67 U/L (21-232) B-Type Natriuretic Peptide 12 pg/mL (0-100) Urine Color LIGHT-YELLOW (YELLOW) Urine Appearance CLEAR (CLEAR) Urine pH 6.0 (5.0-8.0) Urine Specific [place] 1.013 (1.001-1.031) Urine Protein NEGATIVE mg/dL (NEGATIVE) Urine Glucose (UA) 70 mg/dL (NEGATIVE) H Urine Ketones NEGATIVE mg/dL (NEGATIVE) Urine Occult Blood NEGATIVE (NEGATIVE) Urine Nitrate NEGATIVE (NEGATIVE) Urine Bilirubin NEGATIVE mg/dL (NEGATIVE) Urine Urobilinogen 0.2 mg/dL (0.2-1.0) Urine Leukocyte Esterase NEGATIVE Olu/uL Urine RBC 0-1 /HPF (0-1) Urine WBC 0-1 /HPF (0-1) Urine Squamous Epithelial Cells RARE /HPF (0-2) Urine Bacteria None /HPF (None Seen) Troponin I < 0.05 ng/mL (0.00-0.05) Labs Reviewed?: Yes EKG Comment: EKG 06/11/2024 time 9:29 a.m. ventricular rate 76, ND 135, QRS D 77, QT 374. Sinus rhythm. No STEMI ED Course ED Course Orders Procedure Category Date Status Time Vital Signs Per CPOE 06/11/24 Transmitted Routine 09:11 B-Type Natriuretic LAB 06/11/24 Complete Peptide 09:11 Chest 1vw RAD 06/11/24 Resulted 09:11 12 Lead Ekg Tracing- EKG 06/11/24 Complete Technical 09:11 Oxygen By Nc/Pulse Ox CPOE 06/11/24 Transmitted 09:11 Maintain Iv CPOE 06/11/24 Transmitted 09:11 Iv Insertion CPOE 06/11/24 Transmitted 09:11 Cardiac Monitoring CPOE 06/11/24 Transmitted 09:11 Pulse Oximetry With CPOE 06/11/24 Transmitted Vs And Prn 09:11 Cbc With Differential LAB 06/11/24 Complete 09:11 Activity: Br W/Brp CPOE 06/11/24 Transmitted With Assist 09:11 Creatine Kinase, Total LAB 06/11/24 Complete 09:11 Urinalysis Profile LAB 06/11/24 Complete 09:11 Troponin Poc Order LAB 06/11/24 Complete Only 09:11 Bedside Troponin-I LAB.ER 06/11/24 In Process (Poc) 09:11 Basic Metabolic Panel LAB 06/11/24 Complete 09:11 Ondansetron 4mg Inj PHA 06/11/24 Complete (Zofran 4mg Inj) 11:00 Diazepam 5 Mg/Ml 2 Ml PHA 06/11/24 Complete Syg (Valium 5 Mg/M 11:00 0.9%Nacl 1000ml (Ns PHA 06/11/24 Complete 1000ml) 11:00 Current Medications Medications (Trade) Dose Ordered Sig/Carola Route PRN Reason Start Time Stop Time Status Last Admin Dose Admin Diazepam (VALium 5 MG/ML 2 ML SYG) 5 mg ONCE ONCE IVP 06/11/24 11:00 06/11/24 11:01 DC 06/11/24 10:46 Ondansetron HCl (zoFRAN 4MG INJ) 4 mg ONCE ONCE IVP 06/11/24 11:00 06/11/24 11:01 DC 06/11/24 10:46 Sodium Chloride 1,000 ml @ 0 mls/hr ONCE ONCE IV 06/11/24 11:00 06/11/24 11:01 DC 06/11/24 10:46 Vital Signs Date Time Temp Pulse Resp B/P (MAP) Pulse Ox O2 Delivery O2 Flow Rate FiO2 06/11/24 11:58 98.6 77 18 136/85 99 Non-Rebreather+ 15 100 06/11/24 11:23 98.6 115 18 132/77 100 Non-Rebreather+ 15 100 06/11/24 09:24 98.6 97 18 149/123 100 Room Air* 0 21 06/11/24 09:07 98.6 97 18 149/123 100 Room Air 0 HEART Score Response (Comments) Value History: Low suspicion (0) 0 EKG: Normal 0 Age: < 45yrs (0) 0 Risk Factors: 1-2 risk factors (+1) 1 Initial Troponin: Normal limit (0) 0 HEART Score Risk: Low Risk for MACE (1-3) Total 1 Medical Decision Making MDM MDM: Differential diagnosis: Chest pain, syncope episode Rationale: Tests considered and ordered secondary to shared decision making include: labs, ECG and radiology Previous outside records reviewed: Old ER visits. Risk of complication and/or morbidity or mortality of patient management: None Medications-Per medication reconciliation Need for hospitalization: Patient does meet criteria for hospitalization. Need for emergency major/minor surgery: No There are no social concerns with this patient. Prescription drug management Prescriptions will include symptomatic care Patient's prior external medical records from other ER visits were reviewed by me as indicated. Prior testing and results from previous visits were reviewed. Prior tests were taken into account with medical decision making and resource utilization, independent historian/historians were used to obtain complete medical history. I independently interpreted the test that were performed, results were reviewed by me and considered findings on radiology if ordered. Medical management and examination interpretation discussions were had by me with other qualified healthcare professionals as indicated for the patient's care. DX & DISP Disposition: Discharge Departure Impression: Primary Impression: Chest pain Condition: Stable Referrals: MARION DAMON MD (PCP) YOU SARMIENTO MD Jun 11, 2024 10:06
--- NOTE | 2024-06-11 10:12 | HMCIMG ---
CHEST 1VW REASON: CHEST PAIN COMPARISON: 02/26/2023 FINDINGS: Single view of the chest was obtained. Lungs are clear. Heart size is normal. There is no pulmonary vascular congestion. Mediastinum and bony thorax appear unremarkable. IMPRESSION: 1. Normal single view chest x-ray.
[2024-06-11 10:19] LABS: B-TYPE NATRIURETIC PEPTIDE 12 pg/mL (0-100)
[2024-06-11 10:22] LABS: CREATININE 0.7 mg/dL (0.5-1.0); POTASSIUM 3.9 mmol/L (3.5-5.1)
[2024-06-11] MEDS: ondanSETRON 4MG INJ IVP ONE (10:46)
[2024-06-11] MEDS: 0.9%NACL 1000ML 1,000 ML IV ONE (10:46)
[2024-06-11] MEDS: diazePAM 5 MG/ML 2 ML SYG IVP ONE (10:46)
[2024-06-11 11:08] LABS: APPEARANCE,URINE CLEAR (CLEAR); BILIRUBIN,URINE NEGATIVE (NEGATIVE); COLOR,URINE LIGHT-YELLOW (YELLOW); GLUCOSE, URINE (UA) 70 mg/dL (NEGATIVE); KETONES,URINE NEGATIVE (NEGATIVE); LEUKOCYTE ESTERASE ,URINE NEGATIVE Leu/uL (NEGATIVE); NITRATE,URINE NEGATIVE (NEGATIVE); OCCULT BLOOD,URINE NEGATIVE (NEGATIVE); PROTEIN,URINE NEGATIVE (NEGATIVE); UROBILINOGEN,URINE 0.2 mg/dL (0.2-1.0)
[2024-06-11 11:09] LABS: ADD UA MICROSCOPIC YES
[2024-06-11 11:12] LABS: MUCUS,URINE RARE LPF (None Seen); RBC,URINE 0-1 /HPF (0-1); SQUAMOUS EPITHELIAL CELL,UR RARE /HPF (0-2); WBC,URINE 0-1 /HPF (0-1)
[2024-06-11 14:32] VITALS: BP 116/74; PULSE 67; RESP 18; TEMP 98.6; O2SAT 98
== END 2024-06-11 14:34 | disposition home or self-care (01) ==
LOC: EDH 09:04
DX: R07.89 Other chest pain (principal); E11.9 Type 2 diabetes mellitus without complications; Z79.1 Long term (current) use of non-steroidal anti-inflammatories (NSAID); Z88.0 Allergy status to penicillin; Z88.1 Allergy status to other antibiotic agents; Z88.8 Allergy status to other drugs, medicaments and biological substances; Z90.710 Acquired absence of both cervix and uterus; Z91.041 Radiographic dye allergy status
CPT/HCPCS: 99285; 96374; 71045; 96361; 96375; 82550; 84484; 80048; 83880; 85025; 81001; 36415; 93005; J7030; J3360; J2405

== ENCOUNTER → 2024-09-26 | Outpatient (CLI) | payer MEDICAID ==
[~2024-09-26] MED LIST changes: -NAPR-1023 PO; +NAPR-1194 PO; -TAMS-1 PO; +TAMS-55 PO
--- NOTE | 2024-09-26 09:37 | HMCIMG ---
Exam Type: CT HEAD/BRAIN W/O CONTRAST Clinical Information: Weakness Comparison: None CT Dose Index (CTDI): 57.33 mGy Dose Length Product (DLP): 956.79 total mGy-cm Findings: The examination is unremarkable. Ibarra-white matter junction is preserved. No intra or extra axial lesions or fluid collections are seen. Specifically, ibarra and white matter are normal in signal characteristics with normal caliber of ventricles and periventricular cisterns with no evidence of intra or or extra-axial hemorrhage, lacunar infarct, or major territorial infarct, mass, or other abnormality. There are no infarcts. There are no hemorrhages. Periventricular white matter locations are preserved. The orbital contents and structures of the posterior fossa are intact. Impression: Normal CT of the head. This study was performed using dose reduction techniques to include automated exposure control and/or adjustment of the mA and/or kV according to patient size.
== END | disposition home or self-care (01) ==
LOC: RAH 08:51
PROVIDERS: ATTEND Internal Medicine
DX: R53.1 Weakness (principal)
CPT/HCPCS: 70450

== ENCOUNTER 2024-11-10 07:05 | Emergency (ER) | payer MEDICAID ==
[~2024-11-10] VITALS: Ht 160 cm; Wt 80.1 kg
--- NOTE | 2024-11-10 08:41 | ERN ---
General Chief Complaint: Abdominal Pain Stated Complaint: ABDOMINAL PAIN Time Seen by MD: 07:18 Source: patient History of Present Illness Initial Comments Patient is a 34-year-old female coming in complaining of abdominal pain. Per patient she does has a history of chronic abdominal pain secondary to gastroparesis. She also states that she is a diabetic. She states that her department [employer] Dr. Tirado has been evaluating patient. No fever no chills Allergies: Coded Allergies: Iodine and Iodide Containing Produc (Unverified Allergy, Unknown, 03/17/19) No Known Drug Allergies (Verified Allergy, Unknown, 03/17/19) Penicillins (Unverified Allergy, Unknown, 08/02/21) azithromycin (Unverified Allergy, Unknown, 08/02/21) metformin (Unverified Allergy, Unknown, 08/02/21) Home Meds Active Scripts Ketorolac Tromethamine (Ketorolac Tromethamine) 10 Mg Tablet, 10 MG PO BID for 5 Days, #10 TAB Prov:RAMONA CEVALLOS MD 02/08/24 Docusate Sodium (Colace) 100 Mg Capsule, 100 MG PO BID for constipation for 5 Days, #10 CAP 0 Refills Prov:RAMONA CEVALLOS MD 02/08/24 Acetaminophen with Codeine (Acetaminophen-Cod #3 Tablet) 300 Mg-30 Mg Tablet, 1 TAB PO Q4H PRN for MODERATE TO SEVERE PAIN, #10 TAB 0 Refills Prov:ERASMO ANDRE NP 01/17/24 Cephalexin Monohydrate (Keflex) 500 Mg Cap, 500 MG PO QID for 7 Days, #28 CAP Prov:ERASMO ANDRE NP 01/17/24 Butalb/Acetaminophen/Caffeine (Esgic 50-325-40 mg Tablet) 50 Mg-325 Mg-40 Mg Tablet, 2 EACH PO AD for H/A, #30 TAB TWO TABLETS BY MOUTH EVERY4 HOURS P.R.N. HEADACHE/MAXIMUM SIX TABLETS IN 24 HOURS. Prov:ERASMO ANDRE NP 11/15/23 Sumatriptan Succ/Naproxen Sod (Sumatriptan-Naproxen 85-500 mg) 85 Mg-500 Mg Tablet, 1 EACH PO DAILY PRN for HEADACHE for 7 Days, #7 TAB Prov:SHIRA PEREZ MD 04/01/23 Ondansetron (Ondansetron Odt) 4 Mg Tab.rapdis, 4 MG PO TID PRN for NAUSEA, #30 TAB 0 Refills Prov:ABDULAZIZ SUTHERLAND MD 03/20/23 Famotidine (Pepcid) 20 Mg Tablet, 20 MG PO DAILY, #30 TAB 0 Refills Prov:ABDULAZIZ SUTHERLAND MD 03/20/23 Metoclopramide HCl (Reglan 10 mg Tab) 10 Mg Tablet, 10 MG PO QIDP PRN for ABD P, #30 TAB 1 Refill Prov:ABDULAZIZ SUTHERLAND MD 03/20/23 Albuterol Sulfate (Ventolin Hfa/Proventil Hfa/Proair Hfa) 90 Mcg Puff, 90 MCG IH Q4PRN PRN for WHEEZING, #1 INHALER 0 Refills Prov:ABDULAZIZ SUTHERLAND MD 03/20/23 Famotidine (Pepcid) 20 Mg Tablet, 20 MG PO BID for 30 Days, #60 TAB Prov:ASCENCION DOAN MD 02/26/23 Methylprednisolone (Medrol) 4 Mg Tab.ds.pk, 4 MG PO AD for 6 Days, #1 PACK Prov:ASCENCION DOAN MD 02/26/23 Ibuprofen (Motrin/Advil) 600 Mg Tab, 600 MG PO TIDP PRN for PAIN, #30 TAB Prov:DARIO PIRES MD 11/06/22 Docusate Sodium (Colace) 100 Mg Capsule, 100 MG PO BID PRN for CONSTIPATION, #20 CAP Prov:DARIO PIRES MD 11/06/22 Ibuprofen (Ibuprofen) 600 Mg Tablet, 600 MG PO Q8H PRN for PAIN for 10 Days, #30 TAB Prov:DENEEN SHEEHAN MD 08/16/22 Tizanidine HCl (Tizanidine HCl) 4 Mg Capsule, 4 MG PO TIDP PRN for MUSCLE SPASMS, #20 CAP 0 Refills Prov:DAILY COLLINS MD 02/06/22 Ondansetron (Ondansetron Odt) 4 Mg Tab.rapdis, 4 MG PO TIDP, #21 TAB Prov:JAYSON COLIN 11/25/21 Ketorolac Tromethamine (Toradol) 10 Mg Tab, 10 MG PO TIDPC for 4 Days, #12 TAB Prov:JAYSON COLIN 11/25/21 Tamsulosin HCl (Flomax) 0.4 Mg Cap.er.24h, 0.4 MG PO DAILY, #30 CAPSULE. Prov:JAYSON COLIN 11/25/21 Naproxen (Naproxen) 500 Mg Tablet, 500 MG PO BID, #15 TAB Prov:JOHN BHAKTA [facility] 08/02/21 Sulfamethoxazole/Trimethoprim (Bactrim Ds Tablet) 1 Each Tablet, 1 TAB PO BID for 7 Days, #14 TAB 0 Refills Prov:JOHN BHAKTA [facility] 08/02/21 Reported Medications Naproxen (Naproxen) 500 Mg Tablet, PO Q4HPRN, TAB 03/18/17 Esomeprazole Magnesium (Nexium) 40 Mg Capsule.dr, 40 MG PO DAILY, CAP 03/18/17 Past Medical History Past Medical History: Diabetes-Type II, Stroke Medical History Other: GASTROPARESIS, ANAPHYLAXIS Past Surgical History: Hysterectomy, Cholecystectomy, Surgical History Other: TUBAL LIGATION Family History Family History: Negative Social History Social History: Negative, Other Female( History) History: Not Applicable ROS Dictation CONSTITUTIONAL: No chills, no fever, no weakness, no diaphoresis, no malaise. HEAD/FACE: No signs of trauma. EENT: No eye pain, no blurred vision, no tearing, no double vision, no ear pain, no ear discharge, no nose pain, no nasal congestion, no throat pain, no throat swelling, no mouth pain. RESPIRATORY: No cough, no orthopnea, no SOB, no stridor, no wheezing. CARDIOVASCULAR: No chest pain, no edema, no palpitations, no syncope. GASTROINTESTINAL/ABDOMINAL: abdominal pain, no constipation, no diarrhea, no nausea, no vomiting. GENITOURINARY: No abnormal discharge, no dysuria, no frequent urination, no hematuria. No complaints of pain in the genitals. MUSCULOSKELETAL: No back pain, no gout, no joint pain, no joint swelling, no muscle pain, no muscle stiffness, no neck pain. INTEGUMENTARY: No change in color, no change in hair/nails, no dryness, no lesion, no lumps, no rash. NEUROLOGICAL/PSYCH: No anxiety, not depressed, no emotional problem, no headache, no numbness, no pre-existing deficit, no history of seizures, no tremors, no weakness. HEMATOLOGIC/LYMPHATIC: Not anemic, no history of blood clots, no apparent bleeding, no bruising, glands not swollen. All Systems Negative, Except as Noted. Physical Exam Physical Exam Dictation VITAL SIGNS: Reviewed. GENERAL APPEARANCE: Alert, oriented x3, no acute distress, obese. HEAD AND FACE: Non-traumatic. EYES: PERRL, pink conjunctivas, eyelid no trauma, anterior chamber clear. EARS: Pinnas intact and no signs of trauma or erythema. Ear canals clear and no discharge. TMs no erythema. NOSE: No discharge, no bleeding. OROPHARYNX: Mouth normal, teeth no caries, tongue pink. Pharynx clear, no erythema. Tonsils no exudates, no abscesses noted. Mucous membrane moist. NECK: Supple, non-tender, no thyromegaly, no masses, no JVD, no bruits. BREAST: Deferred. CHEST: No tenderness, no crepitus, no paradoxical movement, no retractions. LUNGS: Clear, well-ventilated, symmetric, no rales, no wheezing, no rhonchi, no stridor, good breath sounds bilaterally. HEART: Regular rate, regular rhythm, no murmur, no gallops. VASCULAR: No peripheral edema. ABDOMEN: Soft, positive bowel sounds, nondistended, no guarding, generalized abdominal tenderness, no rebound, no masses no hepatomegaly, no splenomegaly, no Sotelo's sign, no hernias. RECTAL: Deferred. GENITAL: Deferred. NEUROLOGICAL: Normal speech, gross motor function intact, gross sensory function intact. MUSCULOSKELETAL: Neck nontender, full range of motion, back nontender, full range of motion. EXTREMITIES: Nontender, full range of motion. SKIN: Color pink, dry, no turgor, no rash, no lacerations, no abrasions, no contusions. LYMPHATICS: Deferred. Results Laboratory and Microbiology Lab and Micro Result Laboratory Tests Test 11/10/24 07:31 11/10/24 08:41 Urine Color LIGHT-YELLOW (YELLOW) Urine Appearance CLEAR (CLEAR) Urine pH 6.0 (5.0-8.0) Urine Specific Thompson 1.012 (1.001-1.031) Urine Protein NEGATIVE mg/dL (NEGATIVE) Urine Glucose (UA) NEGATIVE mg/dL (NEGATIVE) Urine Ketones NEGATIVE mg/dL (NEGATIVE) Urine Occult Blood NEGATIVE (NEGATIVE) Urine Nitrate NEGATIVE (NEGATIVE) Urine Bilirubin NEGATIVE mg/dL (NEGATIVE) Urine Urobilinogen 0.2 mg/dL (0.2-1.0) Urine Leukocyte Esterase NEGATIVE Olu/uL Urine HCG, Qualitative NEGATIVE (NEGATIVE) Urine Opiates Screen NEGATIVE (NEGATIVE) Urine Barbiturates Screen NEGATIVE (NEGATIVE) Urine Phencyclidine Screen NEGATIVE (NEGATIVE) Urine Amphetamines Screen NEGATIVE (NEGATIVE) Urine Benzodiazepines Screen NEGATIVE (NEGATIVE) Urine Cocaine Screen NEGATIVE (NEGATIVE) Urine Marijuana (THC) Screen NEGATIVE (NEGATIVE) White Blood Count 5.8 K/uL (4.8-10.8) Red Blood Count 4.96 MIL/uL (4.00-5.50) Hemoglobin 13.7 g/dL (12.0-16.0) Hematocrit 42.6 % (36-48) Mean Corpuscular Volume 85.9 fL (79-99) Mean Corpuscular Hemoglobin 27.6 pg (27.0-33.0) Mean Corpuscular Hemoglobin Concent 32.2 g/dL (32.0-36.0) Red Cell Distribution Width 12.6 % (11.0-15.5) Platelet Count 267 K/uL (130-400) Mean Platelet Volume 10.3 fL (7.5-10.5) Immature Granulocyte % (Auto) 0.3 % (0-1) Neutrophils (%) (Auto) 71.6 % (40.0-77.0) Lymphocytes (%) (Auto) 21.1 % (21.0-51.0) Monocytes (%) (Auto) 6.1 % (3.0-13.0) Eosinophils (%) (Auto) 0.7 % (0.0-8.0) Basophils (%) (Auto) 0.2 % (0.0-5.0) Neutrophils # (Auto) 4.1 K/uL (1.8-7.7) Lymphocytes # (Auto) 1.2 K/uL (1.0-4.8) Monocytes # (Auto) 0.4 K/uL (0.1-1.0) Eosinophils # (Auto) 0.04 K/uL (0.00-0.70) Basophils # (Auto) 0.01 K/uL (0.00-0.20) Absolute Immature Granulocyte (auto 0.02 K/uL (0-1) Nucleated Red Blood Cells 0.0 % (0.0-0.19) Sodium Level 133 mmol/L (136-145) L Potassium Level 3.9 mmol/L (3.5-5.1) Chloride Level 100 mmol/L (101-111) L Carbon Dioxide Level 27 mmol/L (21-32) Blood Urea Nitrogen 7 mg/dL (7-18) Creatinine 0.8 mg/dL (0.5-1.0) Glomerular Filtration Rate Calc 98 mL/min (>90) Random Glucose 149 mg/dL (70-105) H Total Calcium 8.9 mg/dL (8.5-10.1) Total Bilirubin 0.5 mg/dL (0.2-1.0) Aspartate Amino Transf (AST/SGOT) 16 U/L (10-37) Alanine Aminotransferase (ALT/SGPT) 33 U/L (12-78) Alkaline Phosphatase 94 U/L (50-136) Total Creatine Kinase 36 U/L (21-232) # Total Protein 8.5 g/dL (6.0-8.3) H Albumin 3.7 g/dL (3.5-5.0) Lipase 40 U/L (16-77) Labs Reviewed?: Yes EKG/XRAY/US/CT/MRI EKG Comment 11/10/2024 time 8:24 a.m. Ventricular rate 85 Sinus rhythm SD [address] wave elevation or depression MDM MDM: Differential diagnosis: Gastroparesis, gastritis, GERD, Rationale: Tests considered and ordered secondary to shared decision making include: Previous outside records reviewed: Old ER visits. Risk of complication and/or morbidity or mortality of patient management: None Medications-Per medication reconciliation Need for hospitalization: Patient does not meet criteria for hospitalization. Patient is a 34-year-old female coming in to be evaluated for abdominal discomfort. Per patient she does have extensive history of gastroparesis and has been evaluated by department [employer]. ER visit was uneventful patient tolerated intake. States he feels much better we will be discharged in stable condition with a diagnosis of gastroparesis and gastritis. ED Course Orders Procedure Category Date Status Time Cbc With Differential LAB 11/10/24 Complete 08: Comprehensive LAB 11/10/24 Complete Metabolic Panel 08:17 ,Urine Test LAB 11/10/24 Complete 08:17 Urinalysis Profile LAB 11/10/24 Complete 08:17 12 Lead Ekg Tracing- EKG 11/10/24 Logged Technical 08:17 Lactated Ringers PHA 11/10/24 Complete 1000ml (Lactated 08:30 Ondansetron 4mg Inj PHA 11/10/24 Complete (Zofran 4mg Inj) 08:30 Lidocaine Hcl 2% PHA 11/10/24 Complete Viscous (Lidocaine Hcl 08:30 Mag/Alum/Simeth 30ml PHA 11/10/24 Complete (Maalox Plus 30ml) 08:30 Pantoprazole 40mg Inj PHA 11/10/24 Complete (Protonix 40mg Inj 08:30 Creatine Kinase, Total LAB 11/10/24 Complete 08:17 Lipase LAB 11/10/24 Complete 08:17 Drug Screen Urine LAB 11/10/24 Complete 08:18 Current Medications Medications (Trade) Dose Ordered Sig/Carola Route PRN Reason Start Time Stop Time Status Last Admin Dose Admin Al Hydroxide/Mg Hydroxide (MAALox PLUS 30ML) 30 ml ONCE ONCE PO 11/10/24 08:30 11/10/24 08:34 DC 11/10/24 08:50 Lactated Ringer's 1,000 ml @ 0 mls/hr ONCE ONCE IV 11/10/24 08:30 11/10/24 08:33 DC 11/10/24 08:47 Lidocaine HCl (Lidocaine HCl 2% Viscous) 10 ml ONCE ONCE PO 11/10/24 08:30 11/10/24 08:34 DC 11/10/24 08:50 Ondansetron HCl (zoFRAN 4MG INJ) 4 mg ONCE ONCE IVP 11/10/24 08:30 11/10/24 08:34 DC 11/10/24 08:50 Pantoprazole Sodium (PROTonix 40MG INJ) 40 mg ONCE ONCE IVP 11/10/24 08:30 11/10/24 08:33 DC 11/10/24 08:50 Vital Signs Date Time Temp Pulse Resp B/P (MAP) Pulse Ox O2 Delivery O2 Flow Rate FiO2 11/10/24 07:13 97.9 85 16 144/93 98 Room Air* 0 21 11/10/24 07:08 97.9 85 16 144/93 98 Room Air 0 DX & DISP Disposition: Discharge Departure Impression: Primary Impression: Gastritis Additional Impression: Gastroparesis Condition: Stable Scripts Pantoprazole Sodium (Protonix) 40 Mg Ectab 1 TAB PO DAILY for 30 Days, #30 TAB 0 Refills Prov: YANIRA HUFF MD 11/10/24 Lactobacillus Acidophilus (Acidophilus Probiotic) 500 Million Cell Capsule 1 CAP PO DAILY for 30 Days, #30 CAP 0 Refills Prov: YANIRA HUFF MD 11/10/24 Additional Instructions: FOLLOW-UP WITH PRIMARY CARE PROVIDER IN 1 TO 2 DAYS. TAKE MEDICATIONS DIRECTED HERE IN THE EMERGENCY ROOM. OKAY TO CONTINUE HOME MEDICATIONS UNLESS OTHERWISE DISCUSSED DURING YOUR VISIT IN THE EMERGENCY ROOM TODAY. RETURN TO YOUR NEAREST EMERGENCY ROOM IF SYMPTOMS WORSEN OR IF THERE IS NO IMPROVEMENT. CALL 911 IF YOU NEED IMMEDIATE ASSISTANCE. TAKE TYLENOL [id number] NEEDED AND IF NO CONTRAINDICATIONS ARE PRESENT. INCREASE ORAL HYDRATION. A WOUND CULTURE OR URINE CULTURE WAS ORDERED HERE IN THE EMERGENCY ROOM DEPARTMENT PLEASE FOLLOW-UP WITH PRIMARY CARE PROVIDER AND ADVISE THEM TO GET REPORTS FROM OUR FACILITY. IF YOU HAD ANY MAKAYLA WRAP/SPLINTS THAT WERE APPLIED HERE, PLEASE DO NOT REMOVE THEM UNTIL YOU SEE YOUR PRIMARY CARE OR SPECIALTY. Referrals: Referrals: MARION DAMON MD (PCP) Time of Disposition: 10:10 YANIRA HUFF MD Nov 10, 2024 08:41
[2024-11-10] MEDS: LACTATED RINGERS 1000ML 1,000 ML IV ONE (08:47)
[2024-11-10] MEDS: PANTOPrazole 40 MG/VIAL IVP ONE (08:50)
[2024-11-10] MEDS: LIDOCAINE HCL 2% VISCOUS 15 ML UDCUP PO ONE (08:50)
[2024-11-10] MEDS: ondanSETRON 4MG INJ IVP ONE (08:50)
[2024-11-10] MEDS: MAG/ALUM/SIMETH 30 ML UDCUP PO ONE (08:50)
[2024-11-10 08:53] LABS: APPEARANCE,URINE CLEAR (CLEAR); BILIRUBIN,URINE NEGATIVE (NEGATIVE); COLOR,URINE LIGHT-YELLOW (YELLOW); GLUCOSE, URINE (UA) NEGATIVE (NEGATIVE); KETONES,URINE NEGATIVE (NEGATIVE); LEUKOCYTE ESTERASE ,URINE NEGATIVE Leu/uL (NEGATIVE); NITRATE,URINE NEGATIVE (NEGATIVE); OCCULT BLOOD,URINE NEGATIVE (NEGATIVE); PROTEIN,URINE NEGATIVE (NEGATIVE); UROBILINOGEN,URINE 0.2 mg/dL (0.2-1.0)
[2024-11-10 08:55] LABS: ADD UA MICROSCOPIC NO; HCG,QUALITATIVE URINE NEGATIVE (NEGATIVE)
[2024-11-10 09:01] LABS: AMPHET/METH SCREEN,URINE NEGATIVE (NEGATIVE); BARBITURATE SCREEN, URINE NEGATIVE (NEGATIVE); BENZODIAZEPINES SCREEN,URINE NEGATIVE (NEGATIVE); CANNABINOID SCREEN,URINE NEGATIVE (NEGATIVE); COCAINE SCREEN,URINE NEGATIVE (NEGATIVE); OPIATE SCREEN,URINE NEGATIVE (NEGATIVE); PHENCYCLIDINE SCREEN,URINE NEGATIVE (NEGATIVE)
[2024-11-10 09:36] LABS: BASOPHILS # (AUTO) 0.01 K/uL (0.00-0.20); BASOPHILS % (AUTO) 0.2 % (0.0-5.0); EOSINOPHILS # (AUTO) 0.04 K/uL (0.00-0.70); EOSINOPHILS % (AUTO) 0.7 % (0.0-8.0); HEMATOCRIT 42.6 % (36-48); IMMATURE GRANULOCYTE ABSOLUTE 0.02 K/uL (0-1); LYMPHOCYTES # (AUTO) 1.2 K/uL (1.0-4.8); LYMPHOCYTES % (AUTO) 21.1 % (21.0-51.0); MEAN CORPUSCULAR HEMOGLOBIN 27.6 pg (27.0-33.0); MEAN CORPUSCULAR HGB CONC 32.2 g/dL (32.0-36.0); MEAN CORPUSCULAR VOLUME 85.9 fL (79-99); MONOCYTES # (AUTO) 0.4 K/uL (0.1-1.0); MONOCYTES % (AUTO) 6.1 % (3.0-13.0); NEUTROPHILS # (AUTO) 4.1 K/uL (1.8-7.7); NEUTROPHILS % (AUTO) 71.6 % (40.0-77.0); PLATELET COUNT (AUTO) 267 K/uL (130-400); RED BLOOD CELL COUNT(AUTO) 4.96 MIL/uL (4.00-5.50); RED CELL DISTRIBUTION WIDTH 12.6 % (11.0-15.5); WHITE BLOOD COUNT (AUTO) 5.8 K/uL (4.8-10.8)
[2024-11-10 09:46] LABS: CREATININE 0.8 mg/dL (0.5-1.0); POTASSIUM 3.9 mmol/L (3.5-5.1)
[2024-11-10 09:51] LABS: ALBUMIN 3.7 g/dL (3.5-5.0); BILIRUBIN,TOTAL 0.5 mg/dL (0.2-1.0); TOTAL PROTEIN, SERUM 8.5 g/dL (6.0-8.3)
[2024-11-10] MEDS ORDERED: PANT40TA55 PO (10:11)
[2024-11-10] MEDS ORDERED: LACT-356 PO (10:11)
[2024-11-10 10:23] VITALS: BP 121/87; PULSE 90; RESP 16; TEMP 98.1; O2SAT 96
--- NOTE | 2024-11-10 13:36 | EKG ---
[facility] Test Date: 2024-11-10 Test Time: 08:24:22 Pat Name: HERMELINDA ANTHONY Department: ED Room: Gender: F Partition Notcher: [id number] [phone] 1990 Requested By: YANIRA HUFF Order Number: [id number] Reading MD: Edgardo Swain Measurements Intervals [place] Rate: 85 P: 60 NE: 131 QRS: 36 QRSD: 66 T: 45 QT: 350 QTc: 416 Interpretive Statements Sinus rhythm Compared to ECG 06/11/2024 09:29:43 No significant changes Electronically Signed On 11-10-2024 16:21:53 CDT by Edgardo Swain Please click the below link to view image of tracing.
== END 2024-11-10 10:30 | disposition home or self-care (01) ==
LOC: EDH 07:05
DX: K29.70 Gastritis, unspecified, without bleeding (principal); K31.84 Gastroparesis; E11.43 Type 2 diabetes mellitus with diabetic autonomic (poly)neuropathy; Z79.1 Long term (current) use of non-steroidal anti-inflammatories (NSAID); Z86.73 Personal history of transient ischemic attack (TIA), and cerebral infarction without residual deficits; Z88.0 Allergy status to penicillin; Z88.1 Allergy status to other antibiotic agents; Z88.8 Allergy status to other drugs, medicaments and biological substances; Z90.49 Acquired absence of other specified parts of digestive tract; Z90.710 Acquired absence of both cervix and uterus
CPT/HCPCS: 99284; 96374; 96361; 96375; 82550; 80053; 80305; 83690; 85025; 81025; 36415; 93005; 81003; J2405; J2470

== ENCOUNTER 2025-04-17 15:03 | Emergency (ER) | payer MEDICAID ==
[~2025-04-17] VITALS: Ht 160 cm; Wt 77.1 kg
--- NOTE | 2025-04-17 15:24 | ERN ---
ED Note History of Present Illness Stated Complaint: MULTIPLE COMPLAINTS Chief Complaint: Multiple Complaints Time Seen by MD: 15:11 Dictation: PATIENT IS A 34-YEAR-OLD FEMALE COMING IN TODAY WITH COMPLAINTS OF HAVING RIGHT FACIAL NUMBNESS AND TINGLING TO HER LIP WITH A FRONTAL HEADACHE. ONSET WAS 1 HOUR PRIOR TO ARRIVAL. IN ADDITION SHE STATES SHE IS HAVING SOME CHEST PAIN THAT DOES NOT RADIATE FOR THE SAME AMOUNT OF TIME. FINALLY SHE IS COMPLAINING ABOUT GENERALIZED BODY WEAKNESS. NIH SCORE OF ONE IN TRIAGE WITH MILD WEAKNESS NOTED TO RIGHT LOWER EXTREMITY. CRANIAL NERVES INTACT SPEECH IS INTACT. GAIT IS STEADY PATIENT STATES SHE HAS HAD A PRIOR CVA AND WAS TREATED AT [facility]. Patient also is complaining of some inflammation to her umbilical area and insomnia after loss of her mother last year. She denies suicidal or homicidal ideation she would like assistance with both. Allergies: Coded Allergies: Iodine and Iodide Containing Produc (Unverified Allergy, Unknown, 03/17/19) No Known Drug Allergies (Verified Allergy, Unknown, 03/17/19) Penicillins (Unverified Allergy, Unknown, 08/02/21) azithromycin (Unverified Allergy, Unknown, 08/02/21) metformin (Unverified Allergy, Unknown, 08/02/21) Home Meds Active Scripts Pantoprazole Sodium (Protonix) 40 Mg Ectab, 1 TAB PO DAILY for 30 Days, #30 TAB 0 Refills Prov:YANIRA HUFF MD 11/10/24 Lactobacillus Acidophilus (Acidophilus Probiotic) 500 Million Cell Capsule, 1 CAP PO DAILY for 30 Days, #30 CAP 0 Refills Prov:YANIRA HUFF MD 11/10/24 Ketorolac Tromethamine (Ketorolac Tromethamine) 10 Mg Tablet, 10 MG PO BID for 5 Days, #10 TAB Prov:RAMONA CEVALLOS MD 02/08/24 Docusate Sodium (Colace) 100 Mg Capsule, 100 MG PO BID for constipation for 5 Days, #10 CAP 0 Refills Prov:RAMONA CEVALLOS MD 02/08/24 Acetaminophen with Codeine (Acetaminophen-Cod #3 Tablet) 300 Mg-30 Mg Tablet, 1 TAB PO Q4H PRN for MODERATE TO SEVERE PAIN, #10 TAB 0 Refills Prov:ERASMO ANDRE 01/17/24 Cephalexin Monohydrate (Keflex) 500 Mg Cap, 500 MG PO QID for 7 Days, #28 CAP Prov:ERASMO ANDRE Timo PORTFOLIO STRATEGIST 01/17/24 Butalb/Acetaminophen/Caffeine (Esgic 50-325-40 mg Tablet) 50 Mg-325 Mg-40 Mg Tablet, 2 EACH PO AD for H/A, #30 TAB TWO TABLETS BY MOUTH EVERY4 HOURS P.R.N. HEADACHE/MAXIMUM SIX TABLETS IN 24 HOURS. Prov:ERASMO ANDRE Timo PORTFOLIO STRATEGIST 11/15/23 Sumatriptan Succ/Naproxen Sod (Sumatriptan-Naproxen 85-500 mg) 85 Mg-500 Mg Tablet, 1 EACH PO DAILY PRN for HEADACHE for 7 Days, #7 TAB Prov:SHIRA PEREZ MD 04/01/23 Ondansetron (Ondansetron Odt) 4 Mg Tab.rapdis, 4 MG PO TID PRN for NAUSEA, #30 TAB 0 Refills Prov:ABDULAZIZ SUTHERLAND MD 03/20/23 Famotidine (Pepcid) 20 Mg Tablet, 20 MG PO DAILY, #30 TAB 0 Refills Prov:ABDULAZIZ SUTHERLAND MD 03/20/23 Metoclopramide HCl (Reglan 10 mg Tab) 10 Mg Tablet, 10 MG PO QIDP PRN for ABD P, #30 TAB 1 Refill Prov:ABDULAZIZ SUTHERLAND MD 03/20/23 Albuterol Sulfate (Ventolin Hfa/Proventil Hfa/Proair Hfa) 90 Mcg Puff, 90 MCG IH Q4PRN PRN for WHEEZING, #1 INHALER 0 Refills Prov:ABDULAZIZ SUTHERLAND MD 03/20/23 Famotidine (Pepcid) 20 Mg Tablet, 20 MG PO BID for 30 Days, #60 TAB Prov:ASCENCION DOAN MD 02/26/23 Methylprednisolone (Medrol) 4 Mg Tab.ds.pk, 4 MG PO AD for 6 Days, #1 PACK Prov:ASCENCION DOAN MD 02/26/23 Ibuprofen (Motrin/Advil) 600 Mg Tab, 600 MG PO TIDP PRN for PAIN, #30 TAB Prov:DARIO PIRES MD 11/06/22 Docusate Sodium (Colace) 100 Mg Capsule, 100 MG PO BID PRN for CONSTIPATION, #20 CAP Prov:DARIO PIRES MD 11/06/22 Ibuprofen (Ibuprofen) 600 Mg Tablet, 600 MG PO Q8H PRN for PAIN for 10 Days, #30 TAB Prov:DENEEN SHEEHAN MD 08/16/22 Tizanidine HCl (Tizanidine HCl) 4 Mg Capsule, 4 MG PO TIDP PRN for MUSCLE SPASMS, #20 CAP 0 Refills Prov:DAILY COLLINS MD 02/06/22 Ondansetron (Ondansetron Odt) 4 Mg Tab.rapdis, 4 MG PO TIDP, #21 TAB Prov:JAYSON COLIN 11/25/21 Ketorolac Tromethamine (Toradol) 10 Mg Tab, 10 MG PO TIDPC for 4 Days, #12 TAB Prov:JAYSON COLIN 11/25/21 Tamsulosin HCl (Flomax) 0.4 Mg Cap.er.24h, 0.4 MG PO DAILY, #30 CAPSULE. Prov:JAYSON COLIN 11/25/21 Naproxen (Naproxen) 500 Mg Tablet, 500 MG PO BID, #15 TAB Prov:JOHN BHAKTA 08/02/21 Sulfamethoxazole/Trimethoprim (Bactrim Ds Tablet) 1 Each Tablet, 1 TAB PO BID for 7 Days, #14 TAB 0 Refills Prov:JOHN BHAKTA 08/02/21 Reported Medications Naproxen (Naproxen) 500 Mg Tablet, PO Q4HPRN, TAB 03/18/17 Esomeprazole Magnesium (Nexium) 40 Mg Capsule.dr, 40 MG PO DAILY, CAP 03/18/17 Past Medical History Past Medical History: Diabetes-Type II Additional Past Medical Hx: GASTROPARISIS Surgical History: Hysterectomy, Cholecystectomy, BTL, Surgical History Other: TUBAL LIGATION Family History: Negative Social History: Negative, Other History: Not Applicable RN Note Reviewed/Agreed w/PFSH: Yes Review of System Dictation NORMAL ROS CONSTITUTIONAL: NEGATIVE EXCEPT FOR HPI HEAD/FACE: NEGATIVE EXCEPT FOR HPI EENT: NEGATIVE EXCEPT FOR HPI RESPIRATORY: NEGATIVE EXCEPT FOR HPI CHEST PAIN GASTROINTESTINAL/ABDOMINAL: NEGATIVE EXCEPT FOR HPI GENITOURINARY: NEGATIVE EXCEPT FOR HPI MUSCULOSKELETAL: NEGATIVE EXCEPT FOR HPI INTEGUMENTARY: NEGATIVE EXCEPT FOR HPI NEUROLOGICAL/PSYCH: NEGATIVE EXCEPT FOR HPI NUMBNESS AND TINGLING TO RIGHT FACE AND LIP FRONTAL HEADACHE HEMATOLOGIC/LYMPHATIC: NEGATIVE EXCEPT FOR HPI ALL SYSTEMS NEGATIVE, EXCEPT NOTED ABOVE. 13 POINT REVIEW OF SYSTEMS ASSESSED AND ALL NEGATIVE EXCEPT FOR ABOVE. Initial Vital Sign VS Vital Signs Date Time Temp Pulse Resp B/P (MAP) Pulse Ox O2 Delivery O2 Flow Rate FiO2 04/17/25 15:05 97.0 92 16 150/108 100 Room Air 0 04/17/25 16:07 21 Physical Exam Dictation VITAL SIGNS REVIEWED GENERAL APPEARANCE: ALERT, ORIENTED X 3, NO ACUTE DISTRESS, WELL DEVELOPED, NOURISHED. HEAD AND FACE: NON-TRAUMATIC. EYES: PERRL, PINK CONJUNCTIVAS, EYELID NO TRAUMA, ANTERIOR CHAMBER WITH ARCUS SENILIS. EARS: PINNAS INTACT AND NO SIGNS OF TRAUMA OR ERYTHEMA EAR CANALS CLEAR AND NO DISCHARGE TM NO ERYTHEMA NOSE: NO DISCHARGE, NO BLEEDING. OROPHARYNX: MOUTH NORMAL, TONGUE PINK, PHARYNX CLEAR,NO ERYTHEMA, TONSILS NO EXUDATES, NO ABSCESSES NOTED, MUCOUS MEMBRANE MOIST NECK: SUPPLE, NON-TENDER, NO THYROMEGALY, NO MASSES, NO JVD, NO BRUITS BREAST:DEFERRED CHEST:NO TENDERNESS, NO CREPITUS, NO PARADOXICAL MOVEMENT, NO RETRACTIONS LUNGS:CLEAR, WELL-VENTILATED, SYMMETRIC, NO RALES, NO WHEEZING, NO RHONCHI, NO STRIDOR, GOOD BREATH SOUNDS BILATERALLY HEART: REGULAR RATE, REGULAR RHYTHM, NO MURMUR, NO GALLOPS VASCULAR: NO PERIPHERAL EDEMA, ABDOMEN: SOFT, POSITIVE BOWEL SOUNDS, NONDISTENDED, NO GUARDING, NONTENDER, NO REBOUND, NO MASSES NO HEPATOMEGALY, NO SPLENOMEGALY, NO BRADSHAW'S SIGN, NO HERNIAS. RECTAL: DEFERRED GENITAL: DEFERRED NEUROLOGICAL: NORMAL SPEECH, MOTOR FUNCTION INTACT, SENSORY FUNCTION INTACT NIH SCORE IS ONE. MILD WEAKNESS TO THE RIGHT LOWER EXTREMITY. YOUR NERVES INTACT SPEECH IS CLEAR GAIT IS STEADY MUSCULOSKELETAL: NECK NONTENDER, FULL RANGE OF MOTION, BACK NONTENDER, FULL RANGE OF MOTION, EXTREMITIES: NONTENDER, FULL RANGE OF MOTION SKIN: COLOR PINK, DRY, NO TURGOR, NO RASH, NO LACERATIONS, NO ABRASIONS, NO CONTUSIONS. Mild umbilical inflammation LYMPHATIC: DEFERRED Results (Laboratory/Radiology) Laboratory/Radiology Laboratory Tests Test 04/17/25 15:30 White Blood Count 5.6 K/uL (4.8-10.8) Red Blood Count 4.54 MIL/uL (4.00-5.50) Hemoglobin 12.4 g/dL (12.0-16.0) Hematocrit 38.0 % (36-48) Mean Corpuscular Volume 83.7 fL (79-99) Mean Corpuscular Hemoglobin 27.3 pg (27.0-33.0) Mean Corpuscular Hemoglobin Concent 32.6 g/dL (32.0-36.0) Red Cell Distribution Width 12.6 % (11.0-15.5) Platelet Count 277 K/uL (130-400) Mean Platelet Volume 10.1 fL (7.5-10.5) Immature Granulocyte % (Auto) 0.4 % (0-1) Neutrophils (%) (Auto) 58.7 % (40.0-77.0) Lymphocytes (%) (Auto) 33.2 % (21.0-51.0) Monocytes (%) (Auto) 7.0 % (3.0-13.0) Eosinophils (%) (Auto) 0.5 % (0.0-8.0) Basophils (%) (Auto) 0.2 % (0.0-5.0) Neutrophils # (Auto) 3.3 K/uL (1.8-7.7) Lymphocytes # (Auto) 1.9 K/uL (1.0-4.8) Monocytes # (Auto) 0.4 K/uL (0.1-1.0) Eosinophils # (Auto) 0.03 K/uL (0.00-0.70) Basophils # (Auto) 0.01 K/uL (0.00-0.20) Absolute Immature Granulocyte (auto 0.02 K/uL (0-1) Nucleated Red Blood Cells 0.0 % (0.0-0.19) Sodium Level 139 mmol/L (136-145) Potassium Level 4.2 mmol/L (3.5-5.1) Chloride Level 101 mmol/L (101-111) Carbon Dioxide Level 29 mmol/L (21-32) Blood Urea Nitrogen 9 mg/dL (7-18) Creatinine 0.7 mg/dL (0.5-1.0) Glomerular Filtration Rate Calc 116 mL/min (>90) Random Glucose 137 mg/dL (70-105) H Total Calcium 8.7 mg/dL (8.5-10.1) Magnesium Level 1.60 mg/dL (1.80-2.40) L Troponin I High Sensitivity < 4 ng/L (4-50) L [facility] Test Date: 2025-04-17 Test Time: 15:26:07 Pat Name: HERMELINDA ANTHONY Department: [facility] Patient Labs Reviewed?: Yes EKG Comment: [facility] Test Date: 2025-04-17 Test Time: 15:26:07 Pat Name: HERMELINDA ANTHONY Department: ED Room: Gender: F 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 ED Course ED Course Orders Procedure Category Date Status Time Ct Head/Brain W/O CT 04/17/25 Resulted Contrast 15:14 Cbc With Differential LAB 04/17/25 Complete 15:14 12 Lead Ekg Tracing- EKG 04/17/25 Complete Technical 15:14 Magnesium LAB 04/17/25 Complete 15:14 Troponin I High LAB 04/17/25 Complete Sensitivity 15:14 Basic Metabolic Panel LAB 04/17/25 Complete 15:14 Magnesium Oxide PHA 04/17/25 Verified (Mag-Ox) 17:30 Vital Signs Date Time Temp Pulse Resp B/P (MAP) Pulse Ox O2 Delivery O2 Flow Rate FiO2 04/17/25 16:07 98.2 91 22 132/90 100 Room Air* 0 21 04/17/25 15:05 97.0 92 16 150/108 100 Room Air 0 HEART Score Response (Comments) Value History: Low suspicion (0) 0 EKG: Normal 0 Risk Factors: 1-2 risk factors (+1) 1 Initial Troponin: Normal limit (0) 0 Total 1 Medical Decision Making MDM 1715/MDM: Differential diagnosis: CVA/ACS/AMI/electrolyte imbalance/dehydr ation/colitis/insomnia Rationale: Tests considered and ordered secondary to shared decision making include: Labs/EKG Previous outside records reviewed: Old ER visits. Risk of complication and/or morbidity or mortality of patient management: None Medications-Per medication reconciliation Need for hospitalization: Patient does not meet criteria for hospitalization. None Need for emergency major/minor surgery: No There are no social concerns with this patient. Prescription drug management Bactroban/hydroxyzine pamoate/magnesium Prescriptions will include symptomatic care Patient's prior external medical records from other ER visits were reviewed by me as indicated. Prior testing and results from previous visits were reviewed. Prior tests were taken into account with medical decision making and resource utilization, independent historian/historians were used to obtain complete med [facility] history. I independently interpreted the test that were performed, results were reviewed by me and considered findings on radiology if ordered. Medical management and examination interpretation discussions were had by me with other qualified healthcare professionals as indicated for the patient's care. 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, Insomnia Condition: Stable Scripts Hydroxyzine Pamoate (Hydroxyzine Pamoate) 100 Mg Capsule 1 CAP PO HS for Anxiety or insomnia for 30 Days, #30 CAP 1 Refill Prov: ERASMO ANDRE PORTFOLIO STRATEGIST 04/17/25 Magnesium Oxide/Mag Aa Chelate (Magnesium 300 mg Capsule) 300 Mg Capsule 300 MG PO DAILY for 10 Days, #10 CAP 0 Refills Prov: ERASMO ANDRE PORTFOLIO STRATEGIST 04/17/25 Mupirocin (Bactroban 2% Oint) 2 % Oint 1 APPL TP TID for 5 Days, #15 GM 0 Refills apply to affected area(s) Prov: ERASMO ANDRE PORTFOLIO STRATEGIST 04/17/25 Additional Instructions: Follow-up with primary care provider in 1 to 2 days. Take medications as directed here in the emergency room. Okay to continue home medications unless otherwise discussed during your visit in the emergency room today. Return to your nearest emergency room if symptoms worsen or if there is no improvement. Call 911 if you need immediate assistance. Take Tylenol or Motrin [id number] as needed and if no contraindications are present. Increase oral hydration. A wound culture or urine culture was ordered here in the emergency room department please follow-up with primary care provider and advise them to get repeat ports from our facility. If you had any Bernardo wrap/splints that were applied here, please do not remove them until you see your primary care or specialty. Take magnesium as directed until gone. Wash your belly button with soap and water dry thoroughly, apply Bactroban 3 times a day for five days if needed Take hydroxyzine pamoate as directed for acute anxiety or insomnia, do not operate a vehicle or work on this medication. See your primary care doctor for follow up Referrals: MARION DAMON MD (PCP) Time of Disposition: 17:15 I have reviewed the case, and I agree with, Diagnosis and Plan ERASMO ANDRE PORTFOLIO STRATEGIST Apr 17, 2025 15:24
--- NOTE | 2025-04-17 15:29 | EKG ---
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
[2025-04-17 15:41] LABS: IMMATURE GRANULOCYTE ABSOLUTE 0.02 K/uL (0-1); NUCLEATED RED BLOOD CELLS 0.0 % (0.0-0.19); PLATELET COUNT (AUTO) 277 K/uL (130-400); RED BLOOD CELL COUNT(AUTO) 4.54 MIL/uL (4.00-5.50); RED CELL DISTRIBUTION WIDTH 12.6 % (11.0-15.5); WHITE BLOOD COUNT (AUTO) 5.6 K/uL (4.8-10.8)
[2025-04-17 15:51] LABS: CREATININE 0.7 mg/dL (0.5-1.0); GLOMERULAR FILTR. RATE CALC 116.0 mL/min (>90); GLUCOSE,RANDOM 137.0 mg/dL (70-105); SODIUM SERUM 139.0 mmol/L (136-145); UREA NITROGEN, BLOOD 9.0 mg/dL (7-18)
--- NOTE | 2025-04-17 16:07 | HMCIMG ---
EXAM: CT Head Without IV contrast. CLINICAL HISTORY: RIGHT FACIAL NUMBNESS TINGLING WITH FRONTAL HEADACHE.H/O CVA TECHNIQUE: Axial computed tomography images of the head/brain without intravenous contrast. COMPARISON: None provided. FINDINGS: BRAIN: No evidence of acute hemorrhage. No mass lesion. No CT evidence for acute territorial infarct. No midline shift or extra-axial collections. VENTRICLES: No hydrocephalus. ORBITS: The orbits are unremarkable. SINUSES AND MASTOIDS: The paranasal sinuses and mastoid air cells are clear. BONES: No fracture. SOFT TISSUES: Unremarkable. IMPRESSION: No acute intracranial abnormality. /[facility]
[2025-04-17] MEDS: MAGNESIUM OXIDE 400 MG TABLET PO ONE (17:31)
[2025-04-17 17:53] VITALS: BP 125/78; PULSE 77; RESP 20; TEMP 97.9; O2SAT 99
== END 2025-04-17 18:13 | disposition home or self-care (01) ==
LOC: EDH 15:03
DX: E83.42 Hypomagnesemia (principal); R00.2 Palpitations; R20.2 Paresthesia of skin; E11.65 Type 2 diabetes mellitus with hyperglycemia; L08.82 Omphalitis not of newborn; G47.00 Insomnia, unspecified; Z79.1 Long term (current) use of non-steroidal anti-inflammatories (NSAID); Z79.899 Other long term (current) drug therapy; Z86.73 Personal history of transient ischemic attack (TIA), and cerebral infarction without residual deficits; Z88.0 Allergy status to penicillin; Z88.1 Allergy status to other antibiotic agents; Z88.8 Allergy status to other drugs, medicaments and biological substances; Z90.49 Acquired absence of other specified parts of digestive tract; Z90.710 Acquired absence of both cervix and uterus
CPT/HCPCS: 36415; 70450; 80048; 83735; 84484; 85025; 93005; 99284

== ENCOUNTER 2025-05-01 06:23 | Emergency (ER) | payer MEDICAID ==
[~2025-05-01] VITALS: Ht 160 cm; Wt 78.9 kg
[~2025-05-01 06:23] MED LIST changes: +HYDR100C2 PO; +IBUP-1492 PO; -IBUP-2070 PO; -IBUP-2088 PO; +IBUP-2859 PO; +LACT-356 PO; +MAGN300C PO; +MUPI22O TP; +PANT40TA55 PO
--- NOTE | 2025-05-01 07:09 | ERN ---
ED Note History of Present Illness Stated Complaint: C/O ABD PAIN,N X V, BACK PAIN, CONSTIPATION Chief Complaint: Abdominal Pain Time Seen by MD: 06:29 Dictation: This is a 34-year-old female with known history of diabetes mellitus multiple somatic complaints and frequent visits to the hospital came in complaining of diffuse abdominal pain going on from Tuesday afternoon. She stated that she did fine up until 12 when she started having diffuse abdominal pain and chief felt gassy and started burping which is usually followed by vomitings. She also reports that she saw some blood in the emesis. She went to see the colorman who sent her to [facility] however she was told that the wait was very long and she had to take care of her children and she returned to the [facility] but the again told her that she had a 7 hour wait hence she left without being seen. She returned to colorman again and they gave her some medication but she could not recall for her vomitings. Her abdominal pain is mostly in the upper abdomen diffusely which is also radiating down to her lower abdomen. No history of any jaundice. She had a history of cholecystectomy in the past Patient apparently was on Ozempic in 2022 for less than a year when she developed gastroparesis. He has never ENT recovered from it even though he was stopped and she was switched to insulin. She does report constipation. Temperature 99 pulse 106 respirations 20 blood pressure 139/87 with a pulse oximetry of 97% on room air Chronic medical problems include diabetes mellitus on insulin, gastroparesis, migraines Allergies: Coded Allergies: Iodine and Iodide Containing Produc (Unverified Allergy, Unknown, 03/17/19) No Known Drug Allergies (Verified Allergy, Unknown, 03/17/19) Penicillins (Unverified Allergy, Unknown, 08/02/21) azithromycin (Unverified Allergy, Unknown, 08/02/21) metformin (Unverified Allergy, Unknown, 08/02/21) Home Meds Active Scripts Metoclopramide HCl (Reglan 10 mg Tab) 10 Mg Tablet, 1 TAB PO TID for 30 Days, #90 TAB 0 Refills Prov:LORI CHAVEZ MD 05/01/25 Ketorolac Tromethamine (Toradol) 10 Mg Tab, 1 TAB PO Q6HPRN PRN for pain for 5 Days, #20 TAB 0 Refills Prov:LORI CHAEVZ MD 05/01/25 Hydroxyzine Pamoate (Hydroxyzine Pamoate) 100 Mg Capsule, 1 CAP PO HS for Anxiety or insomnia for 30 Days, #30 CAP 1 Refill Prov:ERASMO ANDRE 04/17/25 Magnesium Oxide/Mag Aa Chelate (Magnesium 300 mg Capsule) 300 Mg Capsule, 300 MG PO DAILY for 10 Days, #10 CAP 0 Refills Prov:ERASMO ANDRE 04/17/25 Mupirocin (Bactroban 2% Oint) 2 % Oint, 1 APPL TP TID for 5 Days, #15 GM 0 Refills apply to affected area(s) Prov:ERASMO ANDRE 04/17/25 Pantoprazole Sodium (Protonix) 40 Mg Ectab, 1 TAB PO DAILY for 30 Days, #30 TAB 0 Refills Prov:YANIRA HUFF MD 11/10/24 Lactobacillus Acidophilus (Acidophilus Probiotic) 500 Million Cell Capsule, 1 CAP PO DAILY for 30 Days, #30 CAP 0 Refills Prov:YANIRA HUFF MD 11/10/24 Ketorolac Tromethamine (Ketorolac Tromethamine) 10 Mg Tablet, 10 MG PO BID for 5 Days, #10 TAB Prov:RAMONA CEVALLOS MD 02/08/24 Docusate Sodium (Colace) 100 Mg Capsule, 100 MG PO BID for constipation for 5 Days, #10 CAP 0 Refills Prov:RAMONA CEVALLOS MD 02/08/24 Acetaminophen with Codeine (Acetaminophen-Cod #3 Tablet) 300 Mg-30 Mg Tablet, 1 TAB PO Q4H PRN for MODERATE TO SEVERE PAIN, #10 TAB 0 Refills Prov:ERASMO ANDRE 01/17/24 Cephalexin Monohydrate (Keflex) 500 Mg Cap, 500 MG PO QID for 7 Days, #28 CAP Prov:ERASMO ANDRE 01/17/24 Butalb/Acetaminophen/Caffeine (Esgic 50-325-40 mg Tablet) 50 Mg-325 Mg-40 Mg Tablet, 2 EACH PO AD for H/A, #30 TAB TWO TABLETS BY MOUTH EVERY4 HOURS P.R.N. HEADACHE/MAXIMUM SIX TABLETS IN 24 HOURS. Prov:ERASMO ANDRE 11/15/23 Sumatriptan Succ/Naproxen Sod (Sumatriptan-Naproxen 85-500 mg) 85 Mg-500 Mg Tablet, 1 EACH PO DAILY PRN for HEADACHE for 7 Days, #7 TAB Prov:SHIRA PEREZ MD 04/01/23 Ondansetron (Ondansetron Odt) 4 Mg Tab.rapdis, 4 MG PO TID PRN for NAUSEA, #30 TAB 0 Refills Prov:ABDULAZIZ SUTHERLAND MD 03/20/23 Famotidine (Pepcid) 20 Mg Tablet, 20 MG PO DAILY, #30 TAB 0 Refills Prov:ABDULAZIZ SUTHERLAND MD 03/20/23 Metoclopramide HCl (Reglan 10 mg Tab) 10 Mg Tablet, 10 MG PO QIDP PRN for ABD P, #30 TAB 1 Refill Prov:ABDULAZIZ SUTHERLAND MD 03/20/23 Albuterol Sulfate (Ventolin Hfa/Proventil Hfa/Proair Hfa) 90 Mcg Puff, 90 MCG IH Q4PRN PRN for WHEEZING, #1 INHALER 0 Refills Prov:ABDULAZIZ SUTHERLAND MD 03/20/23 Famotidine (Pepcid) 20 Mg Tablet, 20 MG PO BID for 30 Days, #60 TAB Prov:ASCENCION DOAN MD 02/26/23 Methylprednisolone (Medrol) 4 Mg Tab.ds.pk, 4 MG PO AD for 6 Days, #1 PACK Prov:ASCENCION DOAN MD 02/26/23 Ibuprofen (Motrin/Advil) 600 Mg Tab, 600 MG PO TIDP PRN for PAIN, #30 TAB Prov:DARIO PIRES MD 11/06/22 Docusate Sodium (Colace) 100 Mg Capsule, 100 MG PO BID PRN for CONSTIPATION, #20 CAP Prov:DARIO PIRES MD 11/06/22 Ibuprofen (Ibuprofen) 600 Mg Tablet, 600 MG PO Q8H PRN for PAIN for 10 Days, #30 TAB Prov:DENEEN SHEEHAN MD 08/16/22 Tizanidine HCl (Tizanidine HCl) 4 Mg Capsule, 4 MG PO TIDP PRN for MUSCLE SPASMS, #20 CAP 0 Refills Prov:DAILY COLLINS MD 02/06/22 Ondansetron (Ondansetron Odt) 4 Mg Tab.rapdis, 4 MG PO TIDP, #21 TAB Prov:JAYSON COLIN 11/25/21 Ketorolac Tromethamine (Toradol) 10 Mg Tab, 10 MG PO TIDPC for 4 Days, #12 TAB Prov:JAYSON COLIN 11/25/21 Tamsulosin HCl (Flomax) 0.4 Mg Cap.er.24h, 0.4 MG PO DAILY, #30 CAPSULE.DR Prov:JAYSON COLIN 11/25/21 Naproxen (Naproxen) 500 Mg Tablet, 500 MG PO BID, #15 TAB Prov:JOHN BHAKTAP 08/02/21 Sulfamethoxazole/Trimethoprim (Bactrim Ds Tablet) 1 Each Tablet, 1 TAB PO BID for 7 Days, #14 TAB 0 Refills Prov:JOHN BHAKTA [facility] 08/02/21 Reported Medications Naproxen (Naproxen) 500 Mg Tablet, PO Q4HPRN, TAB 03/18/17 Esomeprazole Magnesium (Nexium) 40 Mg Capsule.dr, 40 MG PO DAILY, CAP 03/18/17 Past Medical History Past Medical History: Diabetes-Type II, Migraines, Other Additional Past Medical Hx: HX OF KIDNEY STONES Surgical History: Hysterectomy, Cholecystectomy, Surgical History Other: TUBAL LIGATION Family History: Negative Social History: Smokers (Vapes nicotine), Drugs (History of marijuana), Negative (Vapes nicotine), Other History: Not Applicable RN Note Reviewed/Agreed w/PFSH: Yes Review of System Dictation Constitutional: Negative for fever,chills, and weight loss Eyes: Negative for injury, pain,redness, and discharge ENT: Negative for injury,pain or swelling Cardiovascular: Negative for chest pain, palpitations, and edema Respiratory: Negative for shortness of breath, cough, and wheezing, Abdomen/GI: Positive for abdominal pain, nausea, vomiting, and constipation Back: Negative for injury and pain : Negative for injury, bleeding and discharge MS/Extremity: Negative for injury and deformity Skin: Negative for rash, and discoloration Neuro: Negative for headache, weakness, numbness, tingling, and seizure Psych: Negative for suicide ideation, homicidal ideation, and hallucinations Initial Vital Sign VS Vital Signs Date Time Temp Pulse Resp B/P (MAP) Pulse Ox O2 Delivery O2 Flow Rate FiO2 05/01/25 06:26 99.0 106 20 139/87 97 Room Air 05/01/25 07:30 0 21 Physical Exam Dictation General: awake, alert, NAD overweight female Head/Face: Normocephalic, atraumatic Eyes: PERRL, EOMI, vision at baseline ENT: oral cavity clear, TMs clear, no signs of infection Neck: Trachea midline, supple, no nuchal rigidity Cardiovascular: RRR, normal S1/S2, No MRGs, no JVD Respiratory: CTAB, no respiratory distress, No rales or wheezes Abdomen: Soft, tenderness diffusely in the upper abdomen, non-distended, normal bowel sounds, no guarding or rebound. Skin: Warm, dry, normal turgor, no rash MS/Extremity: Pulses equal, no cyanosis, neurovascular intact, FROM Neuro: COAx4, GCS 15, strength 5/5, CN 2-12 intact, normal cerebellar exam, normal gait, Psych: Normal behavior, mood, and affect normal Extremities-trace edema without any palpable cords, Homans sign is negative Results (Laboratory/Radiology) Laboratory/Radiology Laboratory Tests Test 05/01/25 07:05 White Blood Count 4.4 K/uL (4.8-10.8) L Red Blood Count 4.30 MIL/uL (4.00-5.50) Hemoglobin 12.0 g/dL (12.0-16.0) Hematocrit 37.2 % (36-48) Mean Corpuscular Volume 86.5 fL (79-99) Mean Corpuscular Hemoglobin 27.9 pg (27.0-33.0) Mean Corpuscular Hemoglobin Concent 32.3 g/dL (32.0-36.0) Red Cell Distribution Width 12.7 % (11.0-15.5) Platelet Count 249 K/uL (130-400) Mean Platelet Volume 9.6 fL (7.5-10.5) Immature Granulocyte % (Auto) 0.2 % (0-1) Neutrophils (%) (Auto) 64.3 % (40.0-77.0) Lymphocytes (%) (Auto) 26.4 % (21.0-51.0) Monocytes (%) (Auto) 7.7 % (3.0-13.0) Eosinophils (%) (Auto) 1.4 % (0.0-8.0) Basophils (%) (Auto) 0.0 % (0.0-5.0) Neutrophils # (Auto) 2.8 K/uL (1.8-7.7) Lymphocytes # (Auto) 1.2 K/uL (1.0-4.8) Monocytes # (Auto) 0.3 K/uL (0.1-1.0) Eosinophils # (Auto) 0.06 K/uL (0.00-0.70) Basophils # (Auto) 0.00 K/uL (0.00-0.20) Absolute Immature Granulocyte (auto 0.01 K/uL (0-1) Nucleated Red Blood Cells 0.0 % (0.0-0.19) Urine Color LIGHT-YELLOW (YELLOW) Urine Appearance CLOUDY (CLEAR) H Urine pH 7.5 (5.0-8.0) Urine Specific [place] 1.018 (1.001-1.031) Urine Protein NEGATIVE mg/dL (NEGATIVE) Urine Glucose (UA) NEGATIVE mg/dL (NEGATIVE) Urine Ketones NEGATIVE mg/dL (NEGATIVE) Urine Occult Blood NEGATIVE (NEGATIVE) Urine Nitrate NEGATIVE (NEGATIVE) Urine Bilirubin NEGATIVE mg/dL (NEGATIVE) Urine Urobilinogen 0.2 mg/dL (0.2-1.0) Urine Leukocyte Esterase NEGATIVE Olu/uL Urine RBC 0-1 /HPF (0-1) Urine WBC 2-5 /HPF (0-1) H Urine Squamous Epithelial Cells MOD /HPF (0-2) Urine Bacteria None /HPF (None Seen) Urine HCG, Qualitative NEGATIVE (NEGATIVE) Sodium Level 138 mmol/L (136-145) Potassium Level 4.1 mmol/L (3.5-5.1) Chloride Level 102 mmol/L (101-111) Carbon Dioxide Level 28 mmol/L (21-32) Blood Urea Nitrogen 13 mg/dL (7-18) Creatinine 0.7 mg/dL (0.5-1.0) Glomerular Filtration Rate Calc 116 mL/min (>90) Random Glucose 216 mg/dL (70-105) H Total Calcium 8.5 mg/dL (8.5-10.1) Lipase 60 U/L (16-77) Labs Reviewed?: Yes CT Scan Comment: REASON: abdominal pain ORDERING PHYSICIAN: LORI CHAVEZ MD PROCEDURE: ABD PEL WO - CT ABDOMEN/PELVIS W/O CONTRAST EXAM: CT Abdomen and Pelvis Without IV contrast CLINICAL HISTORY: Abdominal pain TECHNIQUE: Axial computed tomography images of the abdomen and pelvis without intravenous contrast. CONTRAST: No IV contrast. COMPARISON: None provided. FINDINGS: LUNG BASES: The lung bases appear clear. No pleural effusions are seen. LIVER: Diffuse low attenuation of the hepatic parenchyma, consistent with fatty infiltration. No focal hepatic lesion identified on this noncontrast study. GALLBLADDER AND BILE DUCTS: Post-cholecystectomy status. No biliary ductal dilatation is evident. PANCREAS: Unremarkable. SPLEEN: Unremarkable. ADRENAL GLANDS: Unremarkable. KIDNEYS, URETERS, AND BLADDER: The kidneys appear within normal limits. There is no hydronephrosis or hydroureter. Small bilateral non-obstructing renal calculi measuring approximately 23 mm. Tiny 2mm calculi in the proximal and mid right ureter at the level of L4 and S1 vertebral bodies, causing mild right hydroureteronephrosis. STOMACH AND BOWEL: Unremarkable appearance of the stomach and bowel. No evidence of bowel obstruction. No evidence suggesting enteritis or colitis. Mild fecal loading within the colon. Mild scattered colonic diverticulosis in the sigmoid colon without features of diverticulitis. APPENDIX: No evidence of acute appendicitis on CT examination. PERITONEUM: No free fluid. No free air. LYMPH NODES: No lymphadenopathy is evident. REPRODUCTIVE: Status post hysterectomy. VASCULATURE: No evidence of abdominal aortic aneurysm. BONES: No aggressive appearing osseous lesion. No acute osseous pathology is evident. IMPRESSION: No acute intra-abdominal or pelvic abnormality. Tiny right proximal and mid ureteric calculi at L4 and S1 vertebral body levels, causing mild hydroureteronephrosis. Multiple tiny calculi are present at all poles of the right kidney. Non-obstructing left renal calculi without hydronephrosis. Diffuse hepatic steatosis. Mild fecal loading of the colon with a few colonic diverticula in the sigmoid colon without diverticulitis. /[place] DICTATED BY: DORENE HICKEY Jr., MD DATE: 05/01/25 1010 ELECTRONICALLY SIGNED BY: DORENE HICKEY Jr., MD DATE: 05/01/25 1010 ED Course ED Course Orders Procedure Category Date Status Time Cbc With Differential LAB 05/01/25 Complete 06:42 Urinalysis Profile LAB 05/01/25 Complete 06:42 Morphine 4mg Syg PHA 05/01/25 Complete (Morphine 4mg Syg) 07:00 Ondansetron 4mg Inj PHA 05/01/25 Complete (Zofran 4mg Inj) 07:00 Lipase LAB 05/01/25 Complete 06:42 Basic Metabolic Panel LAB 05/01/25 Complete 06:42 ,Urine Test LAB 05/01/25 Complete 06:51 Ct Abdomen/Pelvis W/O CT 05/01/25 Resulted Contrast 07:46 Metoclopramide 10 PHA 05/01/25 Complete Mg/2 Ml Vial (Reglan 1 09:00 Ketorolac PHA 05/01/25 Complete Tromethamine 30mg/Ml 09:00 Tamsulosin Hcl PHA 05/01/25 Complete (Flomax) 09:30 0.9%Nacl 1000ml (Ns PHA 05/01/25 Complete 1000ml) 09:30 Current Medications Medications (Trade) Dose Ordered Sig/Carola Route PRN Reason Start Time Stop Time Status Last Admin Dose Admin Ketorolac Tromethamine (toRADol) 30 mg ONCE ONCE IVP 05/01/25 09:00 05/01/25 09:01 DC 05/01/25 09:15 Metoclopramide HCl (regLAN 10MG IV) 10 mg ONCE ONCE IVP 05/01/25 09:00 05/01/25 09:01 DC 05/01/25 09:15 Morphine Sulfate (morPHINE 4MG SYG) 4 mg ONCE ONCE IVP 05/01/25 07:00 05/01/25 07:01 DC 05/01/25 07:11 Ondansetron HCl (zoFRAN 4MG INJ) 4 mg ONCE ONCE IVP 05/01/25 07:00 05/01/25 07:01 DC 05/01/25 07:11 Sodium Chloride 1,000 ml @ 0 mls/hr ONCE ONCE IV 05/01/25 09:30 05/01/25 09:31 DC Tamsulosin HCl (FloMAX) 0.4 mg ONCE ONCE PO 05/01/25 09:30 05/01/25 09:31 DC 05/01/25 10:09 Vital Signs Date Time Temp Pulse Resp B/P (MAP) Pulse Ox O2 Delivery O2 Flow Rate FiO2 05/01/25 10:30 88 16 104/65 100 Room Air* 0 21 05/01/25 07:30 98.2 106 20 145/88 100 Room Air* 0 21 05/01/25 06:26 99.0 106 20 139/87 97 Room Air Medical Decision Making MDM Differential diagnosis-Gastritis, esophagitis, gastroesophageal reflux disease, acute cholecystitis, acute cholangitis peptic ulcer disease, gastroenteritis, colitis, constipation, pancreatitis This is a 34-year-old female with known history of diabetes mellitus multiple somatic complaints and frequent visits to the hospital came in complaining of diffuse abdominal pain going on from Tuesday afternoon. She stated that she did fine up until 12 when she started having diffuse abdominal pain and chief felt gassy and started burping which is usually followed by vomitings. She also reports that she saw some blood in the emesis. She went to see the colorman who sent her to [facility] however she was told that the wait was very long and she had to take care of her children and she returned to the [facility] but the again told her that she had a 7 hour wait hence she left without being seen. She returned to gastroent erologist again and they gave her some medication but she could not recall for her vomitings. Her abdominal pain is mostly in the upper abdomen diffusely which is also radiating down to her lower abdomen. No history of any jaundice. She had a history of cholecystectomy in the past Patient apparently was on Ozempic in 2022 for less than a year when she developed gastroparesis. He has never ENT recovered from it even though he was stopped and she was switched to insulin. She does report constipation. Temperature 99 pulse 106 respirations 20 blood pressure 139/87 with a pulse oximetry of 97% on room air Chronic medical problems include diabetes mellitus on insulin, gastroparesis, migraines Labs pending. A trial of pain medication and antiemetic until her test is resulted Patient is signed out to oncoming physician at 7:[address] at shift change CT abd /pelvis IMPRESSION: No acute intra-abdominal or pelvic abnormality. Tiny right proximal and mid ureteric calculi at L4 and S1 vertebral body levels, causing mild hydroureteronephrosis. Multiple tiny calculi are present at all poles of the right kidney. Non-obstructing left renal calculi without hydronephrosis. Diffuse hepatic steatosis. Mild fecal loading of the colon with a few colonic diverticula in the sigmoid colon without diverticulitis. Patient he will be discharged with the Flomax, pain medication due to tiny ureteric calculi. Patient was told to follow up with GI as well for possible gastroparesis Patient said she understood the recommendation we will follow up with the PCP as well. Problem List Problem List: (1) Abdominal pain (2) Gastroparesis (3) Constipation (4) Diabetes mellitus with hyperglycemia (5) Nausea & vomiting (6) Bilateral kidney stones DX & DISP Disposition: Discharge Departure Impression: Primary Impression: Abdominal pain Additional Impressions: Gastroparesis, Diabetes mellitus with hyperglycemia, Constipation, Nausea & vomiting, Nephrolithiasis, Bilateral kidney stones Condition: Stable Scripts Metoclopramide HCl (Reglan 10 mg Tab) 10 Mg Tablet 1 TAB PO TID for 30 Days, #90 TAB 0 Refills Prov: LORI CHAVEZ MD 05/01/25 Ketorolac Tromethamine (Toradol) 10 Mg Tab 1 TAB PO Q6HPRN PRN for pain for 5 Days, #20 TAB 0 Refills Prov: LORI CHAVEZ MD 05/01/25 Additional Instructions: RETURN TO ER FOR ANY ACUTE OR WORSENING SYMPTOMS. FOLLOW-UP IN 1-2 DAYS WITH PRIMARY PROVIDER FOR RECHECK OF TODAY'S SYMPTOMS. Referrals: MARION DAMON MD (PCP) Time of Disposition: 10:05 ANOOP ELLINGTON MD May 01, 2025 07:09 LORI CHAVEZ MD May 01, 2025 10:07
[2025-05-01 07:18] LABS: IMMATURE GRANULOCYTE ABSOLUTE 0.01 K/uL (0-1); NUCLEATED RED BLOOD CELLS 0.0 % (0.0-0.19); PLATELET COUNT (AUTO) 249 K/uL (130-400); RED BLOOD CELL COUNT(AUTO) 4.30 MIL/uL (4.00-5.50); RED CELL DISTRIBUTION WIDTH 12.7 % (11.0-15.5); WHITE BLOOD COUNT (AUTO) 4.4 K/uL (4.8-10.8)
[2025-05-01 07:24] LABS: APPEARANCE,URINE CLOUDY (CLEAR); GLUCOSE, URINE (UA) NEGATIVE (NEGATIVE); LEUKOCYTE ESTERASE ,URINE NEGATIVE Leu/uL (NEGATIVE); NITRATE,URINE NEGATIVE (NEGATIVE); OCCULT BLOOD,URINE NEGATIVE (NEGATIVE)
[2025-05-01 07:26] LABS: ADD UA MICROSCOPIC YES
[2025-05-01 07:29] LABS: SQUAMOUS EPITHELIAL CELL,UR MOD /HPF (0-2)
[2025-05-01 07:30] VITALS: TEMP 98.3
[2025-05-01 07:32] LABS: CREATININE 0.7 mg/dL (0.5-1.0); GLOMERULAR FILTR. RATE CALC 116.0 mL/min (>90); GLUCOSE,RANDOM 216.0 mg/dL (70-105); SODIUM SERUM 138.0 mmol/L (136-145); UREA NITROGEN, BLOOD 13.0 mg/dL (7-18)
--- NOTE | 2025-05-01 08:50 | NUR ---
PHYSICIAN MADE AWARE OF PT STILL IN PAIN. PENDING ORDERS AT THIS TIME.
--- NOTE | 2025-05-01 09:12 | HMCIMG ---
EXAM: CT Abdomen and Pelvis Without IV contrast CLINICAL HISTORY: Abdominal pain TECHNIQUE: Axial computed tomography images of the abdomen and pelvis without intravenous contrast. CONTRAST: No IV contrast. COMPARISON: None provided. FINDINGS: LUNG BASES: The lung bases appear clear. No pleural effusions are seen. LIVER: Diffuse low attenuation of the hepatic parenchyma, consistent with fatty infiltration. No focal hepatic lesion identified on this noncontrast study. GALLBLADDER AND BILE DUCTS: Post-cholecystectomy status. No biliary ductal dilatation is evident. PANCREAS: Unremarkable. SPLEEN: Unremarkable. ADRENAL GLANDS: Unremarkable. KIDNEYS, URETERS, AND BLADDER: The kidneys appear within normal limits. There is no hydronephrosis or hydroureter. Small bilateral non-obstructing renal calculi measuring approximately 23 mm. Tiny 2mm calculi in the proximal and mid right ureter at the level of L4 and S1 vertebral bodies, causing mild right hydroureteronephrosis. STOMACH AND BOWEL: Unremarkable appearance of the stomach and bowel. No evidence of bowel obstruction. No evidence suggesting enteritis or colitis. Mild fecal loading within the colon. Mild scattered colonic diverticulosis in the sigmoid colon without features of diverticulitis. APPENDIX: No evidence of acute appendicitis on CT examination. PERITONEUM: No free fluid. No free air. LYMPH NODES: No lymphadenopathy is evident. REPRODUCTIVE: Status post hysterectomy. VASCULATURE: No evidence of abdominal aortic aneurysm. BONES: No aggressive appearing osseous lesion. No acute osseous pathology is evident. IMPRESSION: No acute intra-abdominal or pelvic abnormality. Tiny right proximal and mid ureteric calculi at L4 and S1 vertebral body levels, causing mild hydroureteronephrosis. Multiple tiny calculi are present at all poles of the right kidney. Non-obstructing left renal calculi without hydronephrosis. Diffuse hepatic steatosis. Mild fecal loading of the colon with a few colonic diverticula in the sigmoid colon without diverticulitis. /[place]
[2025-05-01] MEDS ORDERED: 0.9%NACL 1000ML 1,000 ML IV ONE (09:30)
--- NOTE | 2025-05-01 09:58 | NUR ---
REPORT RECEIVED FROM HAJA SMITH
[2025-05-01] MEDS ORDERED: METO10TA41 PO (10:07)
[2025-05-01] MEDS ORDERED: KETO10 PO (10:07)
[2025-05-01 10:30] VITALS: BP 104/65; PULSE 88; RESP 16; O2SAT 100
== END 2025-05-01 10:34 | disposition home or self-care (01) ==
LOC: EDH 06:23
DX: R10.10 Upper abdominal pain, unspecified (principal); E11.43 Type 2 diabetes mellitus with diabetic autonomic (poly)neuropathy; K31.84 Gastroparesis; E11.65 Type 2 diabetes mellitus with hyperglycemia; K59.00 Constipation, unspecified; R11.2 Nausea with vomiting, unspecified; N13.2 Hydronephrosis with renal and ureteral calculous obstruction; G43.909 Migraine, unspecified, not intractable, without status migrainosus; F17.290 Nicotine dependence, other tobacco product, uncomplicated; Z88.8 Allergy status to other drugs, medicaments and biological substances; Z88.1 Allergy status to other antibiotic agents; Z88.0 Allergy status to penicillin; Z79.899 Other long term (current) drug therapy; Z79.1 Long term (current) use of non-steroidal anti-inflammatories (NSAID); Z90.710 Acquired absence of both cervix and uterus; Z90.49 Acquired absence of other specified parts of digestive tract; Z87.442 Personal history of urinary calculi; Z98.890 Other specified postprocedural states
CPT/HCPCS: 99285; 74176; 96374; 96375; 80048; 83690; 85025; 81001; 81025; 36415; J1885; J2405; J2270; J2765